=== PATIENT | female | born 1970 | race Caucasian/White ===

== ENCOUNTER 2017-05-23 12:33 | Inpatient (IN) | payer OTHER ==
[~2017-05-23] VITALS: Ht 157.5 cm; Wt 132.4 kg
[~2017-05-23 12:33] MED LIST: HIGH POTENCY I134 MG PO; LAMOTRIGINE200 M2 PO; XANAX0.5 M1 PO; ZOFRAN ODT4 M1 SL
--- NOTE | 2017-05-23 14:12 | ED GI/GU/ABDOMINAL COMPLAINT ---
History of Present Illness General Chief Complaint: Abdominal Pain/Flank Pain Stated Complaint: ABD/FLANK PAIN Source: patient, family Exam Limitations: no limitations Vital Signs & Intake/Output Vital Signs & Intake/Output Vital Signs Date Time Temp Pulse Resp B/P B/P Pulse O2 O2 Flow FiO2 Mean Ox Delivery Rate 05/23 1824 98.0 72 18 140/64 100 Room Air 05/23 1720 98.2 68 18 155/77 100 Room Air 05/23 1615 98.2 72 18 140/64 99 Room Air 05/23 1240 96.0 61 18 157/83 100 Room Air Room Air Allergies Coded Allergies: amoxicillin (SWELLING 02/02/16) Reconcile Medications Alprazolam (Xanax) 0.5 MG TABLET 1 TAB PO DAILY NEEDED ANXIETY (Reported) Ferrous Sulfate (High Potency Iron) (Unknown Strength) TABLET (Unknown Dose) PO DAILY SUPPLEMENT (Reported) Lamotrigine 200 MG TABLET 1 TAB PO DAILY MENTAL HEALTH (Reported) Ondansetron (Zofran Odt) 4 MG TAB.RAPDIS 1 TAB SL TID PRN NAUSEA Triage Note: TRIAGE: 47 Y/O FEMALE PRESENTS C/O LEFT ABDOMINAL PAIN, LEFT FLANK PAIN. PAIN: 7/10. ALSO CURRENTLY BEING TREATED FOR UTI ON WEDNESDAY. "I HAD A RECENT URINALYSIS COMPLETED. I'M ON ANTIBIOTICS. THE RESUTLS READ 'COLONIZATION' AND MY FRIEND IN THE MEDICAL FIELD SAID THAT THAT COULD MEAN THAT THE UTI IS SPREADING TO MY KIDNEY." Triage Nurses Notes Reviewed? yes ? N Is pt currently ? No HPI: 47 yo F PMH HTN, IBS, Nephrolithiasis, Gastric bypass presenting with abdominal pain. Patient was in her usual state of health prior to 5 days ago, developed increased urinary frequency without dysuria, hematuria, change in color or smell of urine, evaluated by PMD, urinalysis showed infection, started on Bactrim, urine culture results returned today without significant growth. Patient developed abdominal pain starting this morning, left flank rating to the left upper quadrant, quality, constant with fluctuating intensity, worse with movement or palpation. Associated nausea without vomiting. ROS (+) for constipation with no bowel movement for the last 5 days, some chills without fevers. Patient is currently having menstrual peroid. Denies associated chest pain, palpitations, shortness of breath, diarrhea, melena, hematochezia, vaginal discharge, headache, neck pain, or focal neurologic symptoms. Past History Travel History Traveled to [place] past 21 day No Medical History Any Pertinent Medical History? see below for history Neurological: NONE EENT: NONE Cardiovascular: hypertension Respiratory: NONE Gastrointestinal: irritable bowel syndrome, HERNIA Hepatic: NONE Renal: KIDNEY STONES Musculoskeletal: NONE Psychiatric: bipolar disease Endocrine: NONE Blood Disorders: anemia Cancer(s): NONE [employer] WORKER/Reproductive: NONE Surgical History Surgical History: HERNIA Psychosocial History What is your primary language Polish Tobacco Use: Quit >30 days ago ETOH Use: denies use Illicit Drug Use: denies illicit drug use Family History Hx Contributory? Yes Review of Systems Review of Systems Constitutional: Reports: see HPI. EENTM: Reports: no symptoms. Respiratory: Reports: no symptoms. Cardiovascular: Reports: no symptoms. GI: Reports: see HPI. Genitourinary: Reports: see HPI. Musculoskeletal: Reports: no symptoms. Skin: Reports: no symptoms. Neurological/Psychological: Reports: no symptoms. Hematologic/Endocrine: Reports: no symptoms. Immunologic/Allergic: Reports: no symptoms. All Other Systems: Reviewed and Negative Physical Exam Physical Exam General Appearance: well developed/nourished, no apparent distress, alert, awake Head: normal appearance Eyes: Bilateral: PERRL, EOMI. Ears, Nose, Throat, Mouth: moist mucous membrane Neck: normal inspection, full range of motion, no midline tenderness Respiratory: normal breath sounds, lungs clear Cardiovascular: regular rate/rhythm Gastrointestinal: normal bowel sounds, soft, tenderness Comments: Abdomen: Markedly left CVA tenderness palpation, mild left upper quadrant tenderness palpation without rebound or guarding, overall abdomen soft, nontender to palpation elsewhere, no tenderness to palpation of pelvis Core Measures ACS in differential dx? Yes Sepsis Present: No Sepsis Focused Exam Completed? No Progress Differential Diagnosis: AAA, AMI, appendicitis, biliary colic, bowel obstruction , colon cancer, cholecystitis, diverticulitis, ectopic , endometritis, esophageal varices, gastritis, hepatitis, hernia, hemorrhoids, ischemic bowel, inflamm bowel dis, intrauterine , kidney stone, Lizbeth-Simran tear, ovarian cyst, ovarian torsion, pancreatitis, PID/cervicitis, peptic ulcer, PUD/ GERD, perforated viscous, SBO, threatened AB, UTI/pyelo Plan of Care: Orders Procedure Date/time Status Patient Data 05/23 2001 Active Admit to inpatient 05/24 1955 Active EKG 05/23 1704 Active LIPASE 05/23 1458 Complete LACTIC ACID 05/23 1412 Complete URINE 05/23 1315 Complete URINALYSIS 05/23 1315 Complete COMPREHENSIVE METABOLIC PANEL 05/23 1314 Complete CBC WITHOUT DIFFERENTIAL 05/23 1314 Complete Laboratory Tests 05/23/17 1458: Lactic Acid 1.0 05/23/17 1458: Anion Gap 14, Estimated GFR 44 L, BUN/Creatinine Ratio 16.2, Glucose 88, Calcium 10.0, Total Bilirubin 0.7, AST 23, ALT 34, Alkaline Phosphatase 147 H, Total Protein 8.7 H, Albumin 4.7, Globulin 4.0, Albumin/Globulin Ratio 1.2, Lipase 93, CBC w Diff NO MAN DIFF REQ, RBC 4.53, MCV 86.9, MCH 29.3, MCHC 33.7, RDW 14.7 H, MPV 6.7 L, Gran % 77.4 H, Lymphocytes % 15.3 L, Monocytes % 6.0, Eosinophils % 0.9, Basophils % 0.4, Absolute Granulocytes 7.7 H, Absolute Lymphocytes 1.5, Absolute Monocytes 0.6, Absolute Eosinophils 0.1, Absolute Basophils 0 05/23/17 1344: Urine Color YEL, Urine Clarity CLDY H, Urine pH 6.0, Ur Specific [place] >= 1.030, Urine Protein TRACE H, Urine Ketones NEG, Urine Nitrite NEG, Urine Bilirubin NEG, Urine Urobilinogen 0.2, Ur Leukocyte Esterase SMALL H, Ur Microscopic SEDIMENT EXAMINED, Urine RBC >75 H, Urine WBC 25-50 H, Ur Epithelial Cells FEW, Urine Bacteria FEW H, Urine Hemoglobin LARGE H, Urine Glucose NEG, Urine Test NEGATIVE Physician MDM: 47 yo F PMH HTN, IBS, Nephrolithiasis, Gastric bypass presenting with abdominal pain. VSS, abdominal exam as above. DDx: UTI, cystitis, pyelonephritis, nephrolithiasis, biliary pathology, consider obstruction (given history of constipation and prior surgery), low concern for ACS, aortic pathology. Bedside ultrasound with left hydronephrosis. Morphine and Zofran given with improvement in pain and nausea. CMP with mild creatinine elevation to 1.3, minimal alkaline phosphatase elevation to 147. 2 L normal saline ordered. CBC with mild thrombocytosis, otherwise unremarkable. UA with 20-50 wbc's/hpf, small leukocyte esterase, nitrite negative, few bacteria, contaminated with few epithelial cells, >75 RBCs (menstruation vs. nephrolithiasis). Ciprofloxacin for UTI. CT abdomen and pelvis with "Moderate left hydronephrosis from a 6 mm left UPJ stone. There is stranding of the perinephric fat and small amount of fluid. Differential would include urine extravasation secondary to obstruction and infection. There is a 6 mm right upper pole renal stone." On examination patient persistently uncomfortable, given morphine and Toradol, ongoing nausea. Discussed with Dr. Scanlon (Urology) , recommended admission, will evaluate for stent placement tomorrow morning after medical optimization. Given that the patient has ongoing urinary symptoms despite antibiotics, on going apparent UTI on urinalysis, mildly elevated creatinine, and ongoing pain/nausea, will admit for IV fluids, pain control, and further evaluation by urology. Initial ED EKG: normal sinus rhythm Departure Departure Disposition: STILL A PATIENT Condition: Stable Clinical Impression Primary Impression: Nephrolithiasis Referrals: Vaibhav RODRIGUEZ,Juan Luis Estevez (PCP/Family) Departure Forms: Customer Survey General Discharge Information Admission Note Spoke With: Ladi Ramos MD Documentation of Exam: Documentation of any treatments & extenuating circumstances including Concerns Regarding Discharge (functional status, medication knowledge or non-compliance, living conditions, etc.) that warrant an admission rather than observation: Patient presents with urinary symptoms, nausea, vomiting, and left upper quadrant abdominal pain, found to have 6 mm left obstructing UPJ stone with associated fat stranding and possible forniceal rupture, the patient has been taking Bactrim for UTI, 2 stab UTI on the UA here, she is failed outpatient treatment with antibiotics, the patient requires admission for IV pain medications, IV nausea control, IV fluids, monitoring, urology consult, and possible stent placement, if discharged the patient has a high likelihood of progressive renal failure, progressive infection and sepsis physciology, possibly leading to ]
[2017-05-23 15:11] LABS: ABSOLUTE BASOPHIL COUNT 0 /CUMM (0.0-0.2); ABSOLUTE EOSINOPHIL COUNT 0.1 /CUMM (0.0-0.7); ABSOLUTE GRANULOCYTE CT 7.7 /CUMM (1.4-6.5); ABSOLUTE LYMPH COUNT 1.5 /CUMM (1.2-3.4); ABSOLUTE MONOCYTE COUNT 0.6 /CUMM (0.10-0.60); BASOPHIL % 0.4 % (0.0-2.0); EOSINOPHIL % 0.9 % (0-5); GRANULOCYTE % 77.4 % (42.2-75.2); HEMATOCRIT 39.4 % (37-47); MEAN CORPUSCULAR HGB 29.3 PG (27.0-31.0); MEAN CORPUSCULAR HGB CONC 33.7 G/DL (33.0-37.0); MEAN CORPUSCULAR VOLUME 86.9 FL (81.0-99.0); MEAN PLATELET VOLUME 6.7 FL (7.4-10.4); PLATELET COUNT 428 /CUMM (130-400); RBC DISTRIBUTION WIDTH 14.7 % (11.5-14.5); RED BLOOD CELL CT 4.53 /CUMM (4.20-5.40); WHITE BLOOD CELL COUNT 9.9 /CUMM (4.8-10.8)
--- NOTE | 2017-05-23 17:06 | CT SCAN REPORT ---
EXAMINATION: CT ABDOMEN AND PELVIS WITH CONTRAST CLINICAL INFORMATION: Constipation. Left-sided flank pain. Urinary symptoms. Evaluate for pyelonephritis or nephrolithiasis. COMPARISON: Previous CT January 2014 TECHNIQUE: Multidetector volumetric imaging was performed of the abdomen and pelvis following IV administration of 90 mL of Optiray 320 intravenous contrast. Sagittal and coronal reformatted images were obtained on the technologist's workstation. DLP: 03/05/2007 mGy-cm FINDINGS: LUNG BASES: The visualized lung bases are unremarkable. LIVER, GALLBLADDER, AND BILIARY TREE: The liver is normal in size, shape, and attenuation. No focal hepatic lesion or biliary ductal dilatation is present. The gallbladder is unremarkable with no evidence of radiopaque gallstones, gallbladder wall thickening, or obvious pericholecystic inflammatory changes. PANCREAS: Unremarkable. SPLEEN: Unremarkable. ADRENAL GLANDS: Unremarkable. KIDNEYS AND URETERS: There is a 6 mm right upper pole renal stone. There is moderate left hydronephrosis from approximately 6 mm left UPJ stone. There is mild stranding of the left perinephric fat or fluid questionable for urine extravasation secondary to obstruction versus infection. BLADDER: Not full and not well evaluated. GASTROINTESTINAL TRACT: There is evidence of mild diverticulosis. Small and large bowel is otherwise normal. The appendix is normal. There are postsurgical changes to the stomach ABDOMINAL WALL: There is evidence of previous upper midline ventral hernia repair with mesh. No recurrent hernia is seen. There is a small umbilical hernia containing fat. There is a knuckle of small bowel that extends toward the neck of the hernia but does not extend into the hernia sac. LYMPH NODES: There are no enlarged lymph nodes. There is no ascites. VASCULAR: Unremarkable. PELVIC VISCERA: The uterus and adnexa are unremarkable. OSSEOUS STRUCTURES: There are degenerative changes of the spine and at the hip joints. IMPRESSION: Moderate left hydronephrosis from a 6 mm left UPJ stone. There is stranding of the perinephric fat and small amount of fluid. Differential would include urine extravasation secondary to obstruction and infection. There is a 6 mm right upper pole renal stone. Mild diverticulosis. No evidence of diverticulitis.
--- NOTE | 2017-05-23 20:22 | History & Physical ---
Venu Schumacher 05/23/172009: General Information and HPI MD Statement: I have seen and personally examined KOTA MEJÍA and documented this H&P. The patient is a 47 year old F who presented with a patient stated chief complaint of left pleural flank and suprapubic pain with nausea. []. Source of Information: patient Exam Limitations: no limitations History of Present Illness: 47 YO F ex-smoker (quit 15 years back) with PMH of HTN, IBS, lactose intolerance , nephrolithiasis, incisional hernia s/p repair 2013, bipolar disease, chronic headache, ovarian cyst removal in 2016 and gastric bypass 2001 presented to ED with chief complaint of left flank, suprapubic pain with nausea since this morning and urinary frequency for last 1 week. Patient reported that she was in her usual state of health one week back when she noticed having urinary frequency without burning sensation. Patient went to see her primary care physician and he ordered a urine test that came back positive for UTI. Patient was treated with Bactrim but according to the patient her urinary frequency remained the same. This morning at 4 AM patient reported having left flank and suprapubic pain that started suddenly, sharp, intermittent pain, 7/10 without aggravating or relieving factor. Patient took some pain medication and went to sleep. According to patient when she woke up she still had pain and she called her friend who told her to go to ED because it could be the infection that spread to kidney. Patient denied any chest pain, short of breath, palpitation, vomiting, lightheadedness, loss of consciousness, trauma, blood in urine, melena , hematemesis, burning sensation while urinating, chills and fever. Patient also reported having alternating diarrhea and constipation due to her irritated bowel syndrome and she is scheduled to see her mechanical facilities technician in few days. Patient had EGD in 2013 that showed mildly dilated gastric pouch. ED course: Vitals: Temperature 96.0, pulse 61, respiratory rate 18, blood pressure 157/83, oxygen saturation 100% on room air Labs: WBC count 9.9, hemoglobin 13.3, hematocrit 39.4, platelet count 428, sodium 142, potassium 4.3, BUN 21, creatinine 1.3, anion gap 14, BUN/creatinine ratio 16.2, glucose 88, calcium 10.0, bilirubin 0.3, AST 23, ALT 34, alkaline phosphatase 147, Patient was given 1 dose of ciprofloxacin in ED Allergies/Medications Allergies: Coded Allergies: amoxicillin (SWELLING 02/02/16) Past History Travel History Traveled to [place] past 21 day No Medical History Neurological: NONE EENT: NONE Cardiovascular: hypertension Respiratory: NONE Gastrointestinal: irritable bowel syndrome, HERNIA Hepatic: NONE Renal: KIDNEY STONES Musculoskeletal: NONE Psychiatric: bipolar disease Endocrine: NONE Blood Disorders: anemia Cancer(s): NONE BRASS MOLDER/Reproductive: NONE Surgical History Surgical History: HERNIA Past Family/Social History Psychosocial History ETOH Use: denies use Illicit Drug Use: denies illicit drug use Review of Systems Review of Systems Constitutional: Reports: no symptoms. EENTM: Reports: no symptoms. Cardiovascular: Reports: no symptoms. Respiratory: Reports: no symptoms. GI: Reports: abdominal pain. Genitourinary: Reports: frequency. Musculoskeletal: Reports: see HPI. Skin: Reports: no symptoms. Neurological/Psychological: Reports: no symptoms. Hematologic/Endocrine: Reports: no symptoms. Exam & Diagnostic Data Last 24 Hrs of Vital Signs/I&O Vital Signs Date Time Temp Pulse Resp B/P B/P Pulse O2 O2 Flow FiO2 Mean Ox Delivery Rate 05/23 1824 98.0 72 18 140/64 100 Room Air 05/23 1720 98.2 68 18 155/77 100 Room Air 05/23 1615 98.2 72 18 140/64 99 Room Air 05/23 1240 96.0 61 18 157/83 100 Room Air Room Air Intake & Output 05/23 1600 05/23 0800 05/23 0000 Intake Total Output Total Balance Patient 290 lb Weight Weight Reported by Patient Measurement Method Physical Exam General Appearance Alert, Oriented X3, Cooperative, No Acute Distress Skin No Rashes Skin Temp/Moisture Exam: Warm/Dry Sepsis Skin Exam (color): Normal for Ethnicity HEENT Atraumatic, PERRLA, EOMI Neck Supple Cardiovascular Normal S1, Normal S2 Lungs Clear to Auscultation, Normal Air Movement Abdomen suprapubic tenderness, CVA tenderness positive on left Neurological Normal Speech, Strength at 5/5 X4 Ext, Normal Tone, Sensation Intact Extremities No Edema Last 24 Hrs of Labs/Toni: Laboratory Tests 05/23/17 1458: Lactic Acid 1.0 05/23/17 1458: Anion Gap 14, Estimated GFR 44 L, BUN/Creatinine Ratio 16.2, Glucose 88, Calcium 10.0, Total Bilirubin 0.7, AST 23, ALT 34, Alkaline Phosphatase 147 H, Total Protein 8.7 H, Albumin 4.7, Globulin 4.0, Albumin/Globulin Ratio 1.2, Lipase 93, CBC w Diff NO MAN DIFF REQ, RBC 4.53, MCV 86.9, MCH 29.3, MCHC 33.7, RDW 14.7 H, MPV 6.7 L, Gran % 77.4 H, Lymphocytes % 15.3 L, Monocytes % 6.0, Eosinophils % 0.9, Basophils % 0.4, Absolute Granulocytes 7.7 H, Absolute Lymphocytes 1.5, Absolute Monocytes 0.6, Absolute Eosinophils 0.1, Absolute Basophils 0 05/23/17 1344: Urine Color YEL, Urine Clarity CLDY H, Urine pH 6.0, Ur Specific [place] >= 1.030, Urine Protein TRACE H, Urine Ketones NEG, Urine Nitrite NEG, Urine Bilirubin NEG, Urine Urobilinogen 0.2, Ur Leukocyte Esterase SMALL H, Ur Microscopic SEDIMENT EXAMINED, Urine RBC >75 H, Urine WBC 25-50 H, Ur Epithelial Cells FEW, Urine Bacteria FEW H, Urine Hemoglobin LARGE H, Urine Glucose NEG, Urine Test NEGATIVE Assessment/Plan Assessment: 47 YO F ex-smoker (quit 15 years back) with PMH of HTN, IBS, lactose intolerance , nephrolithiasis, incisional hernia s/p repair 2013, bipolar disease, chronic headache, ovarian cyst removal in 2016 and gastric bypass 2001 presented to ED with chief complaint of left flank, suprapubic pain with nausea since this morning and urinary frequency for last 1 week. We will admit the patient on general medicine floor to treat for left ureteric stone with hydronephrosis. Left ureteric stone with hydronephrosis: -We will keep the patient nothing by mouth for possible procedure tomorrow -IV fluid hydration -IV antiemetic, Zofran when necessary -Urology consult -IV morphine Left pyelonephritis: -IV ceftriaxone -IV hydration -We will follow the urine culture Acute kidney injury: -Possibly due to dehydration and use of NSAIDs with ARBs -We will monitor input and output -Avoid nephrotoxic medications -Continue IV hydration -Hold the ARB and no NSAIDs -We will follow creatinine BUN level History of hypertension: -Continue home medication History of bipolar disorder: -Continue home medication History of chronic headache: -Continue topiramate History of anxiety: -In home medication DVT prophylaxis: Mechanical and subcutaneous Lovenox CODE STATUS: Full code As Ranked By This Provider Problem List: 1. Nephrolithiasis 2. OTIS (acute kidney injury) 3. Hydronephrosis 4. Pyelonephritis Core Measures/Misc (11/15) Acute Coronary Syndrome ACS Diagnosis: No Congestive Heart Failure Congestive Heart Failure Diagnosis No Cerebrovascular Accident CVA/TIA Diagnosis: No VTE (View Protocol) VTE Risk Factors Age>40 No Mechanical VTE Prophylaxis d/t N/A MechProphylax Ordered No VTE Pharm Prophylaxis d/t NA PharmProphylax ordered Sepsis (View protocol) Sepsis Present: No ForestRubiCady 05/23/17 2308: General Information and HPI Allergies/Medications Home Med list Alprazolam 0.25 MG TABLET ANXIETY (Reported) Ferrous Sulfate (High Potency Iron) (Unknown Strength) TABLET (Unknown Dose) PO DAILY SUPPLEMENT (Reported) Irbesartan 150 MG TABLET 1 TAB PO DAILY HIGH BLOOD PRESSURE (Reported) Lamotrigine 200 MG TABLET 1 TAB PO DAILY MENTAL HEALTH (Reported) Ondansetron (Zofran Odt) 4 MG TAB.RAPDIS 1 TAB SL TID PRN NAUSEA Rosuvastatin Calcium (Crestor) 10 MG TABLET 1 TAB PO DAILY HIGH CHOLESTROL ( Reported) Topiramate 25 MG TABLET 1 TAB PO BID HEADACHE (Reported) Resident Review Statement Resident Statement: examined this patient, discussed with operations intern, agreed with operations intern Other Findings: Patient is 47-year-old obese female with past medical history significant for anxiety, bipolar disorder, history of gastric bypass surgery in 2003, history of renal colic at age 19 and hypertension came in with chief complaint of left-sided lower abdominal and flank pain since 4 AM. Patient was recently diagnosed with UTI last week and she completed a course of Bactrim today. Since 4 AM this morning she start experiencing severe intermittent left flank pain radiating to back with nausea minimally relieved with over-the- counter Tylenol and Advil. She denied any fever, chills, headache, vomiting, chest pain, shortness of breath. She has increase in frequency of urination but denied any burning and she is not sure of hematuria as she has menstural bleeding this week. She denied frequent UTIs had last UTI almost 10 years ago. Vital signs on admission were temperature 96.0, pulse 61, respiratory rate 18, blood pressure 157/83 and saturating 100% on room air. WBC 9.9, hemoglobin 13.3, platelet count 428, sodium 142, potassium 4.3, BUNs 21 and creatinine 1.3., UA showed 25-50 WBCs and more than 75 RBCs with few urine bacteria Abdominal and pelvis CAT scan showed moderate left hydronephrosis from 6 mm left ureteropelvic junction stone. There is perinephric fat stranding and small amount of fluid. On examination Alert and oriented 3, comfortable Head atraumatic Neck supple Chest clear to auscultate Heart S1, S2 normal no added sounds Abdomen obese, slight left lower abdomen/flank tenderness and left CVA tenderness positive Extremities showed trace edema No neurological deficit noted Assessment and plan 47-year-old obese female with history of hypertension, dyslipidemia, bipolar disorder and anxiety, recently treated for UTI came with left flank pain and imaging study is suggestive of obstructing left renal colic with hydronephrosis. We will admit patient on general medical floor and we will address following problems Problem list 1. Left flank pain and hydronephrosis due to obstructing ureteric stone 2. History of bipolar disease and anxiety 3. History of hypertension and dyslipidemia 4. History of gastric bypass surgery 5. History of chronic headaches 6. AK I most likely prerenal due to dehydration/infection or NSAIDs use Plan 1. We will admit her on general medical floor 2. We will monitor her WBC count, basic electrolyte panel and urine culture 3. We will start her on antibiotic ceftriaxone daily to cover her for pyelonephritis 4. Gentle IV hydration 5. We will avoid nephrotoxic's 6. Symptomatic treatment for nausea and adequate pain medications 7. Urology evaluation 8. We'll keep her nothing by mouth for possible stent placement tomorrow 9. We will continue all her home medications except nicolas inhibitors due to AK I and we will monitor her blood pressure if needed we might give her amlodipine Patient is full code Nothing by mouth Pharmacological DVT prophylaxis Ladi Ramos 05/24/17 0052: Attending MD Review Statement Attending Statement Attending MD Statement: examined this patient, discuss w/resident/PA/PRIVATE BANKER, agreed w/resident/PA/PRIVATE BANKER, reviewed EMR data (avail), reviewed images, amended to note Attending Assessment/Plan: CC: Left flank pain PMH: HLD, HTN, IBS, history of gastric bypass, obesity, bipolar disorder, headache, history of nephrolithiasis at the age of 19 years, history of hernia repair, history of ovarian cyst removal Patient came to ER for left-sided flank pain. Patient started to notice urinary frequency and urgency approximately 5 days back for which she was seen by primary care physician and urinalysis was updated and she was prescribed Bactrim. She started taking Bactrim from and today was her last day of the treatment but this morning she noticed left flank pain radiating to anterior side up to suprapubic area, sharp, not relieved even with 4 tabs of Aleve. She tried to rest but pain was worsening so she came to ER. Of note her urine cultures were negative, as informed by her primary care physician. Patient denies any fever, chills, vomiting but she felt mild nausea this morning. She feels constipated since Wednesday, tried linzess without relief. Her urinary frequency and urgency continues along with the left flank pain. She had similar episode of renal stone at the age of 19, but did not have any further episode, does not get recurrent UTI. Vitals: Afebrile, pulse 60s, RR 18, blood pressure 157/83, saturating well on room air. On exam: A O 3, cooperative, no acute distress, obese, neck supple, JVD normal, no lymphadenopathy, mucosa dry, no focal neurological deficit, no dependent edema, no obvious skin rashes or inflammation CVS: S1-S2, RRR. RS: Clear to auscultate bilaterally. Abdomen: Soft, NT, ND, bowel sounds present, mild left CVA tenderness. CT abdomen and pelvis with IV contrast: Moderate left hydronephrosis from a 6 mm left UPJ stone. There is stranding of the perinephric fat and small amount of fluid. Differential would include urine extravasation secondary to obstruction and infection. There is a 6 mm right upper pole renal stone. Mild diverticulosis. No evidence of diverticulitis. A and P 47 year old female with above-mentioned past medical history presented in ER for typical symptoms of left-sided flank pain radiating to the abdomen and the suprapubic area started this morning. Symptoms were preceded by urinary frequency and urgency since last 5 days and was started on by mouth Bactrim on . Urinary frequency and urgency continue and flank pain developed today which was progressively worsening. Patient denies any fever or chills dizziness, palpitation chest pain mild nausea but no vomiting. Vitals are stable without any significant fever, examination unremarkable except mild left CVA tenderness. She was found to have left hydronephrosis with a 6 mm left UPJ stone and suspicion of pyelonephritis. She doesn't have significant leukocytosis, neutrophils 77% but there is mild increase in creatinine to 1.3 as compared to 0.7 in March 2017, could be secondary to mild dehydration, and NSAIDs use or infection. Urine is positive for small leukocyte esterase, more than 75 RBC, large hemoglobin. Her UTI could be partially treated with Bactrim. She is allergy to amoxicillin (rash and facial swelling), we will try ceftriaxone, she received a dose of Cipro in ER. Urologist was called from ER, who suggested possible stent in a.m. + Left hydronephrosis with possible pyelonephritis with obstructive UPJ stone + Constipation + History of HLD, HTN, IBS, history of gastric bypass, obesity, bipolar disorder , headache - Admit to general medicine - Continue gentle hydration with normal saline at 75 mL per hour - Hold ARB and no NSAIDS - Follow-up urine culture - Nothing by mouth after midnight - Start ceftriaxone at 8 AM - Adequate pain control - Urology consult - MiraLAX and senna for constipation - When necessary Zofran for nausea - Continue all her home medications - Repeat labs in a.m.
--- NOTE | 2017-05-23 20:34 | Cons- Urology ---
General Information and HPI Consulting Request Date of Consult: 05/23/17 Requested By: MD Mac Jacob Reason for Consult: hydro. ureter stone Source of Information: patient, old records Exam Limitations: no limitations History of Present Illness: 47 yr old with 5 days of colic. seen a few dasys ago and now returns with nausea, worse pain. CT REVEALS LEFT 6MM OBST STONE IN URETER: 8MM RIGHT STONE. BOTH DISCUSSED WITH PT. Allergies/Medications Allergies: Coded Allergies: amoxicillin (SWELLING 02/02/16) Home Med List: Alprazolam 0.25 MG TABLET ANXIETY (Reported) Ferrous Sulfate (High Potency Iron) (Unknown Strength) TABLET (Unknown Dose) PO DAILY SUPPLEMENT (Reported) Irbesartan 150 MG TABLET 1 TAB PO DAILY HIGH BLOOD PRESSURE (Reported) Lamotrigine 200 MG TABLET 1 TAB PO DAILY MENTAL HEALTH (Reported) Ondansetron (Zofran Odt) 4 MG TAB.RAPDIS 1 TAB SL TID PRN NAUSEA Rosuvastatin Calcium (Crestor) 10 MG TABLET 1 TAB PO DAILY HIGH CHOLESTROL ( Reported) Topiramate 25 MG TABLET 1 TAB PO BID HEADACHE (Reported) Current Medications: Current Medications Sig/Rebecca Start time Last Medication Dose Route Stop Time Status Admin Ciprofloxacin 400 MG ONCE ONE 05/23 2000 DC IV 05/23 2000 Morphine Sulfate 0 .STK-MED ONE 05/23 1753 DC .ROUTE Morphine Sulfate 4 MG ONCE ONE 05/23 1745 DC 05/23 IV 05/23 1746 1753 Morphine Sulfate 0 .STK-MED ONE 05/23 1537 DC .ROUTE Morphine Sulfate 4 MG ONCE ONE 05/23 1515 DC 05/23 IV 05/23 1516 1543 Ondansetron HCl 0 .STK-MED ONE 05/23 1537 DC .ROUTE Ondansetron HCl 4 MG ONCE ONE 05/23 1515 DC 05/23 IV 05/23 1516 1543 Sodium Chloride 1,000 ML BOLUS ONE 05/23 1615 DC 05/23 IV 05/23 1814 1647 Sodium Chloride 1,000 ML BOLUS ONE 05/23 1615 DC 05/23 IV 05/23 1814 1918 Past History Medical History Neurological: NONE EENT: NONE Cardiovascular: hypertension Respiratory: NONE Gastrointestinal: irritable bowel syndrome, HERNIA Hepatic: NONE Renal: KIDNEY STONES Musculoskeletal: NONE Psychiatric: bipolar disease Endocrine: NONE Blood Disorders: anemia Cancer(s): NONE CLINICAL EDUCATION COORDINATOR/Reproductive: NONE Surgical History Pertinent Surgical History: HERNIA Psychosocial History ETOH Use: denies use Illicit Drug Use: denies illicit drug use Functional Ability ADLs Independent: dressing, eating, toileting, bathing. Ambulation: independent IADLs Independent: shopping, housework, finances, food prep, telephone, transportation , medication admin. 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 EENTM: Denies: no symptoms. Cardiovascular: Denies: no symptoms. Respiratory: Denies: no symptoms. GI: Denies: abdominal pain, distention. Genitourinary: Reports: dysuria. Musculoskeletal: Denies: no symptoms. Exam & Diagnostic Data Vital Signs and I&O Vital Signs Date Time Temp Pulse Resp B/P B/P Pulse O2 O2 Flow FiO2 Mean Ox Delivery Rate 05/23 1824 98.0 72 18 140/64 100 Room Air 05/23 1720 98.2 68 18 155/77 100 Room Air 05/23 1615 98.2 72 18 140/64 99 Room Air 05/23 1240 96.0 61 18 157/83 100 Room Air Room Air Intake & Output 05/23 1600 05/23 0800 05/23 0000 05/22 1600 05/22 0800 05/22 0000 Intake Total Output Total Balance Patient 290 lb Weight Weight Reported by Patient Measurement Method Physical Exam General Appearance: well developed/nourished, mild distress Head: atraumatic Eyes: Bilateral: normal appearance. Neck: normal inspection Respiratory: normal breath sounds Cardiovascular: regular rate/rhythm Gastrointestinal: normal bowel sounds, soft, non-tender Back: CVA tenderness (L) Extremities: normal inspection Other Physical Findings: obese Last 24 Hours of Labs: Laboratory Tests 05/23 05/23 1458 1458 Chemistry Sodium (137 - 145 mmol/L) 142 Potassium (3.5 - 5.1 mmol/L) 4.3 Chloride (98 - 107 mmol/L) 107 Carbon Dioxide (22 - 30 mmol/L) 22 Anion Gap (5 - 16) 14 BUN (7 - 17 mg/dL) 21 H Creatinine (0.5 - 1.0 mg/dL) 1.3 H Estimated GFR (>60 ml/min) 44 L BUN/Creatinine Ratio (7 - 25 %) 16.2 Glucose (65 - 99 mg/dL) 88 Lactic Acid (0.7 - 2.1 mmol/L) 1.0 Calcium (8.4 - 10.2 mg/dL) 10.0 Total Bilirubin (0.2 - 1.3 mg/dL) 0.7 AST (14 - 36 U/L) 23 ALT (9 - 52 U/L) 34 Alkaline Phosphatase (<127 U/L) 147 H Total Protein (6.3 - 8.2 g/dL) 8.7 H Albumin (3.5 - 5.0 g/dL) 4.7 Globulin (1.9 - 4.2 gm/dL) 4.0 Albumin/Globulin Ratio (1.1 - 2.2 %) 1.2 Lipase (23 - 300 U/L) 93 Hematology CBC w Diff NO MAN DIFF REQ WBC (4.8 - 10.8 /CUMM) 9.9 RBC (4.20 - 5.40 /CUMM) 4.53 Hgb (12.0 - 16.0 G/DL) 13.3 Hct (37 - 47 %) 39.4 MCV (81.0 - 99.0 FL) 86.9 MCH (27.0 - 31.0 PG) 29.3 MCHC (33.0 - 37.0 G/DL) 33.7 RDW (11.5 - 14.5 %) 14.7 H Plt Count (130 - 400 /CUMM) 428 H MPV (7.4 - 10.4 FL) 6.7 L Gran % (42.2 - 75.2 %) 77.4 H Lymphocytes % (20.5 - 51.1 %) 15.3 L Monocytes % (1.7 - 9.3 %) 6.0 Eosinophils % (0 - 5 %) 0.9 Basophils % (0.0 - 2.0 %) 0.4 Absolute Granulocytes (1.4 - 6.5 /CUMM) 7.7 H Absolute Lymphocytes (1.2 - 3.4 /CUMM) 1.5 Absolute Monocytes (0.10 - 0.60 /CUMM) 0.6 Absolute Eosinophils (0.0 - 0.7 /CUMM) 0.1 Absolute Basophils (0.0 - 0.2 /CUMM) 0 05/23 1344 Urines Urine Color (YEL,AMB,STR) YEL Urine Clarity (CLEAR) CLDY H Urine pH (5.0 - 8.0) 6.0 Ur Specific [place] (1.001 - 1.035) >= 1.030 Urine Protein (NEG,<30 MG/DL) TRACE H Urine Ketones (NEG) NEG Urine Nitrite (NEG) NEG Urine Bilirubin (NEG) NEG Urine Urobilinogen (0.1 - 1.0 EU/dl) 0.2 Ur Leukocyte Esterase (NEG) SMALL H Ur Microscopic SEDIMENT EXAMINED Urine RBC (0 - 5 /HPF) >75 H Urine WBC (0 - 2 /HPF) 25-50 H Ur Epithelial Cells (NONE,FEW) FEW Urine Bacteria (NEG/NONE) FEW H Urine Hemoglobin (NEG) LARGE H Urine Glucose (N MG/DL) NEG Urine Test NEGATIVE Imaging Results: PATIENT: KOTA MEJÍA PRESENT AGE: 47 PATIENT ACCOUNT NO: [id number] : 69 LOCATION: [facility] ORDERING PHYSICIAN: Toby Norman MD SERVICE DATE: 05/23/17 EXAM TYPE: CAT - CT ABD & PELVIS W IV CONTRAST EXAMINATION: CT ABDOMEN AND PELVIS WITH CONTRAST CLINICAL INFORMATION: Constipation. Left-sided flank pain. Urinary symptoms. Evaluate for pyelonephritis or nephrolithiasis. COMPARISON: Previous CT January 2014 TECHNIQUE: Multidetector volumetric imaging was performed of the abdomen and pelvis following IV administration of 90 mL of Optiray 320 intravenous contrast. Sagittal and coronal reformatted images were obtained on the technologist's workstation. DLP: 03/05/2007 mGy-cm FINDINGS: LUNG BASES: The visualized lung bases are unremarkable. LIVER, GALLBLADDER, AND BILIARY TREE: The liver is normal in size, shape, and attenuation. No focal hepatic lesion or biliary ductal dilatation is present. The gallbladder is unremarkable with no evidence of radiopaque gallstones, gallbladder wall thickening, or obvious pericholecystic inflammatory changes. PANCREAS: Unremarkable. SPLEEN: Unremarkable. ADRENAL GLANDS: Unremarkable. KIDNEYS AND URETERS: There is a 6 mm right upper pole renal stone. There is moderate left hydronephrosis from approximately 6 mm left UPJ stone. There is mild stranding of the left perinephric fat or fluid questionable for urine extravasation secondary to obstruction versus infection. BLADDER: Not full and not well evaluated. GASTROINTESTINAL TRACT: There is evidence of mild diverticulosis. Small and large bowel is otherwise normal. The appendix is normal. There are postsurgical changes to the stomach ABDOMINAL WALL: There is evidence of previous upper midline ventral hernia repair with mesh. No recurrent hernia is seen. There is a small umbilical hernia containing fat. There is a knuckle of small bowel that extends toward the neck of the hernia but does not extend into the hernia sac. LYMPH NODES: There are no enlarged lymph nodes. There is no ascites. VASCULAR: Unremarkable. PELVIC VISCERA: The uterus and adnexa are unremarkable. OSSEOUS STRUCTURES: There are degenerative changes of the spine and at the hip joints. IMPRESSION: Moderate left hydronephrosis from a 6 mm left UPJ stone. There is stranding of the perinephric fat and small amount of fluid. Differential would include urine extravasation secondary to obstruction and infection. There is a 6 mm right upper pole renal stone. Mild diverticulosis. No evidence of diverticulitis. Assessment/Plan Assessment/Plan left hydro due to ureter stone/hydrate, pain management, abx. npo at ut for possiblew stent in am Copies To: Lucas Scanlon MD Consult Acknowledgment - Thank you for your consult request.
[2017-05-23] MEDS ORDERED: CRESTOR10 M1 PO (22:20)
[2017-05-23] MEDS ORDERED: TOPIRAMATE25 M2 PO (22:20)
[2017-05-23] MEDS ORDERED: IRBESARTAN150 M1 PO (22:20)
[2017-05-23] MEDS ORDERED: ALPRAZOLAM0.25 M1 (22:21)
[2017-05-23 22:47] VITALS: BP 144/70
--- NOTE | 2017-05-24 00:54 | Admission Certification ---
Admission Certification Certification Statement - As attending physician, I certify that at the time of - admission, based on clinical presentation, severity of - symptoms, need for further diagnostic testing and - therapeutic interventions, and risk of adverse outcomes - without in-hospital treatment, in my clinical assessment, - this patient requires an acute hospital stay for a minimum - of two nights or longer. I have also considered psychsocial - factors such as support system, advanced age, financial - issues, cognitive issues, and failed out-patient treatments, - past re-admission history, safety of patient, and lack of - compliance as applicable. Specific rationale supporting this admission is: Left hydronephrosis with possible pyelonephritis with obstructive UPJ stone
[2017-05-24 06:22] VITALS: BP 128/76
--- NOTE | 2017-05-24 07:35 | PN- Housestaff ---
See Addendum Subjective Follow-up For: Left hydronephrosis due to ureteric stone Going for OR today Subjective: seen and examined She reports feeling better, no further pain. She did have an episode of dry heaving in the morning, resolved. Review of Systems Constitutional: Reports: see HPI. Objective Last 24 Hrs of Vital Signs/I&O Vital Signs Date Time Temp Pulse Resp B/P B/P Pulse O2 O2 Flow FiO2 Mean Ox Delivery Rate 05/24 0622 98.4 72 20 128/76 96 05/23 2247 98.0 77 18 144/70 99 Room Air 05/23 2154 98.0 80 18 156/70 100 Room Air 05/23 1824 98.0 72 18 140/64 100 Room Air 05/23 1720 98.2 68 18 155/77 100 Room Air 05/23 1615 98.2 72 18 140/64 99 Room Air 05/23 1240 96.0 61 18 157/83 100 Room Air Room Air Intake & Output 05/24 0800 05/24 0000 05/23 1600 Intake Total 600 Output Total Balance 600 Intake, IV 600 Intake, Oral 0 Patient 132.449 kg 131.542 kg Weight Weight Reported by Patient Reported by Patient Measurement Method Physical Exam General Appearance: Alert, Oriented X3, Cooperative Skin: No Rashes, No Breakdown Skin Temp/Moisture Exam: Warm/Dry HEENT: Atraumatic, PERRLA, EOMI Neck: Supple Cardiovascular: Normal S1, Normal S2, No Murmurs Lungs: Clear to Auscultation, Normal Air Movement Abdomen: Normal Bowel Sounds, Soft, tenderness in the middle of the abdomen, radiatng to the back Neurological: Normal Speech, Strength at 5/5 X4 Ext, Normal Tone Extremities: No Clubbing, No Cyanosis, No Edema Vascular: Normal Pulses, Pulses Symmetrical Current Medications: Current Medications Sig/Rebecca Start time Last Medication Dose Route Stop Time Status Admin Acetaminophen 650 MG Q6P PRN 05/23 2199 AC PO Acetaminophen 1,000 MG Q8 PRN 05/23 220 AC 05/24 IV 0628 Alprazolam 0.25 MG DAILY NEEDED 05/23 2230 AC PO 05/30 2229 Atorvastatin Calcium 40 MG 1700 05/24 1700 AC PO Ceftriaxone Sodium 1,000 MG DAILY 05/24 1000 AC 05/24 IV 1006 Ciprofloxacin 400 MG Q12 05/24 1000 CAN Dextrose/Water 200 ML IV Ciprofloxacin 400 MG ONCE ONE 05/24 1999 DC 05/23 IV 05/23 Ferrous Sulfate 325 MG DAILY 05/24 1000 AC PO Heparin Sodium 5,000 UNIT Q8 05/23 2200 AC 05/23 (Porcine) SC 2258 Ketorolac 30 MG TID PRN 05/24 0715 AC Tromethamine IV Lamotrigine 200 MG DAILY 05/24 1000 AC PO Morphine Sulfate 2 MG Q4P PRN 05/23 2199 AC 05/24 IV 1005 Morphine Sulfate 0 .STK-MED ONE 05/23 1753 DC .ROUTE Morphine Sulfate 4 MG ONCE ONE 05/23 1745 DC 05/23 IV 05/23 1746 1753 Morphine Sulfate 0 .STK-MED ONE 05/23 1537 DC .ROUTE Morphine Sulfate 4 MG ONCE ONE 05/23 1515 DC 05/23 IV 05/23 1516 1543 Omeprazole 40 MG DAILY AC 05/24 0707 AC 05/24 PO 0817 Ondansetron HCl 4 MG TID PRN 05/23 2200 AC PO Ondansetron HCl 0 .STK-MED ONE 05/23 1537 DC .ROUTE Ondansetron HCl 4 MG ONCE ONE 05/23 1515 DC 05/23 IV 05/23 1516 1543 Sodium Chloride 1,000 ML Q13H 05/23 2200 AC 05/24 IV 1118 Sodium Chloride 1,000 ML BOLUS ONE 05/23 1615 DC 05/23 IV 05/23 1814 1647 Sodium Chloride 1,000 ML BOLUS ONE 05/23 1615 DC 05/23 IV 05/23 1814 1918 Topiramate 200 MG DAILY 05/24 1000 DC PO Last 24 Hrs of Lab/Toni Results Last 24 Hrs of Labs/Mics: Laboratory Tests 05/24/17 0725: Anion Gap 11, Estimated GFR 44 L, BUN/Creatinine Ratio 13.1, CBC w Diff NO MAN DIFF REQ, RBC 3.65 L, MCV 86.0, MCH 29.4, MCHC 34.2, RDW 15.1 H, MPV 6.9 L, Gran % 76.2 H, Lymphocytes % 14.3 L, Monocytes % 8.2, Eosinophils % 1.0, Basophils % 0.3, Absolute Granulocytes 5.7, Absolute Lymphocytes 1.1 L, Absolute Monocytes 0.6, Absolute Eosinophils 0.1, Absolute Basophils 0 05/23/17 1458: Lactic Acid 1.0 05/23/17 1458: Anion Gap 14, Estimated GFR 44 L, BUN/Creatinine Ratio 16.2, Glucose 88, Calcium 10.0, Total Bilirubin 0.7, AST 23, ALT 34, Alkaline Phosphatase 147 H, Total Protein 8.7 H, Albumin 4.7, Globulin 4.0, Albumin/Globulin Ratio 1.2, Lipase 93, CBC w Diff NO MAN DIFF REQ, RBC 4.53, MCV 86.9, MCH 29.3, MCHC 33.7, RDW 14.7 H, MPV 6.7 L, Gran % 77.4 H, Lymphocytes % 15.3 L, Monocytes % 6.0, Eosinophils % 0.9, Basophils % 0.4, Absolute Granulocytes 7.7 H, Absolute Lymphocytes 1.5, Absolute Monocytes 0.6, Absolute Eosinophils 0.1, Absolute Basophils 0 05/23/17 1344: Urine Color YEL, Urine Clarity CLDY H, Urine pH 6.0, Ur Specific [place] >= 1.030, Urine Protein TRACE H, Urine Ketones NEG, Urine Nitrite NEG, Urine Bilirubin NEG, Urine Urobilinogen 0.2, Ur Leukocyte Esterase SMALL H, Ur Microscopic SEDIMENT EXAMINED, Urine RBC >75 H, Urine WBC 25-50 H, Ur Epithelial Cells FEW, Urine Bacteria FEW H, Urine Hemoglobin LARGE H, Urine Glucose NEG, Urine Test NEGATIVE Microbiology 05/24 1343 URINE ROUT: Urine Culture - RES Assessment/Plan Assessment: Patient is a 47 YO F with PMH of HLD, HTN, IBS, gastric bypass, obesity, bipolar disorder, headache, nephrolithiasis (age 19ys), hernia repair, ovarian cyst removal presented in ER for typical symptoms of left-sided flank pain radiating to the abdomen and the suprapubic area started on the day of admission. 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 Urinary frequency and urgency continue and flank pain developed on day of admission which was progressively worsening. Patient denies any fever or chills dizziness, palpitation chest pain mild nausea but no vomiting. Vitals are stable without any significant fever, examination unremarkable except mild left CVA tenderness. Labs did show leukocytosis, neutrophils 77% but there is mild increase in creatinine to 1.3 as compared to 0.7 in March 2017. Urine is positive for small leukocyte esterase, more than 75 RBC, large hemoglobin. Imagning with CT abdomen demonstrated left hydronephrosis with a 6 mm left UPJ stone and suspicion of pyelonephritis. Admitted to general medicine floor Problem list 1. Left hydronephrosis with possible pyelonephritis with obstructive UPJ stone 2. Constipation 3. HTN 4. IBS 5. Bipolar disorder Left hydronephrosis with possible pyelonephritis with obstructive UPJ stone Urology consulted as she had a 6mm stone on left side, 8mm stone on the right side. Received 3L of fluids so far. A dose of ciprofloxacin was given, started on ceftriaxone IV subsequently. Going to OR for procedure later this afternoon by . Pain management with IV Tylenol, IV ketorolac , IV morphine. OTIS Cr of 1.3 at admission. After 3L of hydration still 1.3. Possibly postobstruction bilateral renal stones is the reason. Cotinue to monitor. Constipation --?IBS-C MiraLAX and senna for constipation. If not helpful will consider Linzess tomorrow. HTN She was on Irbesartan 150mg daily at home. It is transitioned to Losartan 50mg daily. Bipolar disorder cotinue Lamotrigine 200mg daily. Headache Cotinue Topiramate 25mg - 2 tabs tonight. DVT prophylaxis SC heparin Code status Full code Problem List: 1. Nephrolithiasis 2. OTIS (acute kidney injury) 3. Hydronephrosis Pain Ratin Pain Location: left sided flank Pain Goal: Pain 4 or less Pain Plan: tylenol ketorolac morphine Tomorrow's Labs & Rationales: cbc to monitor white count bep to monitor Cr.
[2017-05-24 09:11] LABS: ABSOLUTE BASOPHIL COUNT 0 /CUMM (0.0-0.2); ABSOLUTE EOSINOPHIL COUNT 0.1 /CUMM (0.0-0.7); ABSOLUTE GRANULOCYTE CT 5.7 /CUMM (1.4-6.5); ABSOLUTE LYMPH COUNT 1.1 /CUMM (1.2-3.4); ABSOLUTE MONOCYTE COUNT 0.6 /CUMM (0.10-0.60); BASOPHIL % 0.3 % (0.0-2.0); GRANULOCYTE % 76.2 % (42.2-75.2); MEAN CORPUSCULAR HGB 29.4 PG (27.0-31.0); MEAN CORPUSCULAR HGB CONC 34.2 G/DL (33.0-37.0); MEAN PLATELET VOLUME 6.9 FL (7.4-10.4); PLATELET COUNT 344 /CUMM (130-400); RBC DISTRIBUTION WIDTH 15.1 % (11.5-14.5); RED BLOOD CELL CT 3.65 /CUMM (4.20-5.40); WHITE BLOOD CELL COUNT 7.4 /CUMM (4.8-10.8)
[2017-05-24 09:28] LABS: HEMATOCRIT 31.4 % (37-47)
[2017-05-24 14:53] VITALS: BP 120/76
[2017-05-24 19:27] VITALS: BP 120/68
[2017-05-24 21:43] VITALS: BP 130/80
[2017-05-25 07:09] VITALS: BP 130/77
--- NOTE | 2017-05-25 07:36 | PN- Housestaff ---
See Addendum Subjective Follow-up For: Left hydronephrosis due to ureteric stone s/p stone removal and stent placement Subjective: seen and examined She feels much better. In good spirits to go home. Requested pain medications for going home. Review of Systems Constitutional: Reports: see HPI. Objective Last 24 Hrs of Vital Signs/I&O Vital Signs Date Time Temp Pulse Resp B/P B/P Pulse O2 O2 Flow FiO2 Mean Ox Delivery Rate 05/25 0709 98.4 67 20 130/77 99 05/24 2143 98.1 74 18 130/80 98 05/24 1927 97.5 83 18 120/68 87 Room Air 05/24 1453 98.0 69 20 120/76 99 Room Air Intake & Output 05/25 0800 05/25 0000 05/24 1600 Intake Total 460 236 Output Total 0 300 Balance 460 -64 Intake, IV 160 236 Intake, Oral 300 0 Number 0 0 Bowel Movements Output, Urine 0 300 Physical Exam General Appearance: Alert, Oriented X3, Cooperative, No Acute Distress Skin: No Rashes, No Breakdown HEENT: Atraumatic, PERRLA, EOMI Neck: Supple Cardiovascular: Normal S1, Normal S2 Lungs: Clear to Auscultation, Normal Air Movement Abdomen: Normal Bowel Sounds, Soft, mild tenderness in the center of abdomen Neurological: Normal Gait, Normal Speech, Strength at 5/5 X4 Ext, Normal Tone, Sensation Intact Extremities: No Clubbing, No Cyanosis, No Edema Current Medications: Current Medications Sig/Rebecca Start time Last Medication Dose Route Stop Time Status Admin Acetaminophen 650 MG Q6P PRN 05/23 2199 AC PO Acetaminophen 1,000 MG Q8 PRN 05/23 2200 AC 05/24 IV 0628 Alprazolam 0.25 MG DAILY NEEDED 05/23 2230 AC PO 05/30 2229 Atorvastatin Calcium 40 MG 1700 05/24 1700 AC 05/24 PO 2041 Ceftriaxone Sodium 1,000 MG DAILY 05/24 1000 AC 05/24 IV 1006 Fentanyl Citrate 100 MCG .STK-MED ONE 05/24 1633 DC IM 05/24 1634 Ferrous Sulfate 325 MG DAILY 05/24 1000 AC 05/24 PO 2041 Heparin Sodium 5,000 UNIT Q8 05/230 AC 05/25 (Porcine) SC 0611 Ketorolac 30 MG TID PRN 05/24 0715 AC 05/24 Tromethamine IV 2357 Lamotrigine 200 MG DAILY 05/24 1000 AC 05/24 PO 2042 Losartan Potassium 50 MG DAILY 05/25 1000 AC PO Midazolam HCl 2 MG .STK-MED ONE 05/24 1634 DC IM 05/24 1635 Morphine Sulfate 2 MG Q6P PRN 05/24 1330 AC IV Morphine Sulfate 2 MG Q4P PRN 05/23 2200 DC 05/24 IV 1005 Omeprazole 40 MG DAILY AC 05/24 0707 AC 05/25 PO 0611 Ondansetron HCl 4 MG TID PRN 05/23 2200 AC PO Sodium Chloride 1,000 ML Q13H 05/23 2200 DC 05/24 IV 1118 Last 24 Hrs of Lab/Toni Results Last 24 Hrs of Labs/Mics: Laboratory Tests 05/25/17 0717: Anion Gap 10, Estimated GFR 59 L, BUN/Creatinine Ratio 14.0, CBC w Diff NO MAN DIFF REQ, RBC 3.58 L, MCV 87.0, MCH 29.6, MCHC 34.0, RDW 14.9 H, MPV 6.8 L, Gran % 67.6, Lymphocytes % 23.4, Monocytes % 6.4, Eosinophils % 2.1, Basophils % 0.5, Absolute Granulocytes 3.5, Absolute Lymphocytes 1.2, Absolute Monocytes 0.3 , Absolute Eosinophils 0.1, Absolute Basophils 0 Assessment/Plan Assessment: Patient is a 47 YO F with PMH of HLD, HTN, IBS, gastric bypass, obesity, bipolar disorder, headache, nephrolithiasis (age 19ys), hernia repair, ovarian cyst removal presented in ER for typical symptoms of left-sided flank pain radiating to the abdomen and the suprapubic area started on the day of admission. 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 Urinary frequency and urgency continue and flank pain developed on day of admission which was progressively worsening. Patient denies any fever or chills dizziness, palpitation chest pain mild nausea but no vomiting. Vitals are stable without any significant fever, examination unremarkable except mild left CVA tenderness. Labs did show leukocytosis, neutrophils 77% but there is mild increase in creatinine to 1.3 as compared to 0.7 in March 2017. Urine is positive for small leukocyte esterase, more than 75 RBC, large hemoglobin. Imagning with CT abdomen demonstrated left hydronephrosis with a 6 mm left UPJ stone and suspicion of pyelonephritis. Admitted to general medicine floor Problem list 1. Left hydronephrosis with possible pyelonephritis with obstructive UPJ stone 2. Constipation 3. HTN 4. IBS 5. Bipolar disorder Left hydronephrosis with possible pyelonephritis with obstructive UPJ stone Urology consulted as she had a 6mm stone on left side, 8mm stone on the right side. Received 3L of fluidss. A dose of ciprofloxacin was given, started on ceftriaxone IV which is converted to keflex 500mg Q12 for a total of 7 days. She underwent stone removal with stent placement on 2nd day of hospitalization. Discharged with Phenazopyridine for dysuria, percocet for pain along with antibiotics. OTIS Cr of 1.3 at admission. Didnt improve after hydration but came down to 1.0 after removal of the stone and stenting indicating postobstructive. Constipation Possibly related to IBS-C MiraLAX and senna for constipation. HTN She was on Irbesartan 150mg daily at home. It is transitioned to Losartan 50mg daily. Discharged on her home medications. Bipolar disorder cotinued Lamotrigine 200mg daily. Headache Cotinued Topiramate 25mg - 2 tabs tonight. DVT prophylaxis SC heparin Code status Full code Problem List: 1. Hydronephrosis 2. OTIS (acute kidney injury) Pain Ratin Pain Location: abdominal pain Pain Goal: Pain 4 or less Pain Plan: Tylenol and percocet Tomorrow's Labs & Rationales: none
--- NOTE | 2017-05-25 08:13 | RADIOLOGY REPORT ---
EXAMINATION: INTRAOPERATIVE FLUOROSCOPY DURING LEFT CYSTOURETEROSCOPY WITH STENT PLACEMENT CLINICAL INDICATION: Left ureteral stone. COMPARISON: None. TECHNIQUE: The procedure was performed by Dr. Scanlon in the operating room. FLUOROSCOPY TIME: 26 seconds. Number of images: 1 FINDINGS: Fluoroscopic imaging demonstrates partially imaged left ureteral stent with proximal pigtail in the renal collecting system. IMPRESSION: Intraoperative fluoroscopy was utilized by Dr. Scanlon during left cystoureteroscopy with stent placement. Please refer to the operative report for a detailed description of the procedure and the real-time findings made and acted upon by the surgeon.
[2017-05-25 08:26] LABS: ABSOLUTE BASOPHIL COUNT 0 /CUMM (0.0-0.2); ABSOLUTE EOSINOPHIL COUNT 0.1 /CUMM (0.0-0.7); ABSOLUTE GRANULOCYTE CT 3.5 /CUMM (1.4-6.5); ABSOLUTE LYMPH COUNT 1.2 /CUMM (1.2-3.4); ABSOLUTE MONOCYTE COUNT 0.3 /CUMM (0.10-0.60); BASOPHIL % 0.5 % (0.0-2.0); EOSINOPHIL % 2.1 % (0-5); GRANULOCYTE % 67.6 % (42.2-75.2); HEMATOCRIT 31.1 % (37-47); MEAN CORPUSCULAR HGB 29.6 PG (27.0-31.0); MEAN PLATELET VOLUME 6.8 FL (7.4-10.4); PLATELET COUNT 340 /CUMM (130-400); RBC DISTRIBUTION WIDTH 14.9 % (11.5-14.5); RED BLOOD CELL CT 3.58 /CUMM (4.20-5.40); WHITE BLOOD CELL COUNT 5.1 /CUMM (4.8-10.8)
--- NOTE | 2017-05-25 09:31 | Patient Discharge Instructions ---
Discharge Instructions General Discharge Information You were seen/treated for: Left hydronephrosis due to renal stone Special Instructions: Please follow up with your PCP in a week Please follow up with your urologist - in a week Diet Continue normal diet: Yes Activity Full Activity/No Limits: Yes Acute Coronary Syndrome Inclusion Criteria At DC or during hospital stay patient has or had the following: ACS DIAGNOSIS No Discharge Core Measures Meds if any: Prescribed or Continued at Discharge Meds if any: NOT Prescribed or Continued at Discharge Congestive Heart Failure Inclusion Criteria At DC or during hospital stay patient has or had the following: CHF DIAGNOSIS No Discharge Core Measures Meds if any: Prescribed or Continued at Discharge Meds if any: NOT Prescribed or Continued at Discharge Cerebrovascular accident Inclusion Criteria At DC or during hospital stay patient has or had the following: CVA/TIA Diagnosis No Discharge Core Measures Meds if any: Prescribed or Continued at Discharge Meds if any: NOT Prescribed or Continued at Discharge Venous thromboembolism Inclusion Criteria VTE Diagnosis No VTE Type NONE VTE Confirmed by (Test) NONE Discharge Core Measures - Per Current guidelines, there needs to be overlap - treatment for the first 5 days of Warfarin therapy. - If discharged on Warfarin prior to 5 days of - overlap therapy, the patient will need to be - assessed for post discharge needs including - *Post discharge parental anticoagulation - *Warfarin and/or parental anticoagulation education - *Follow up date to check INR post discharge At least 5 days overlap therapy as Inpatient No Meds if any: Prescribed or Continued at Discharge Note: Overlap Therapy is Warfarin and Anticoagulant Meds if any: NOT Prescribed or Continued at Discharge
[2017-05-25] MEDS ORDERED: KEFLEX500 M1 PO ×2 (09:37→10:37)
[2017-05-25] MEDS ORDERED: PYRIDIUM200 M1 PO ×2 (09:47→10:37)
[2017-05-25] MEDS ORDERED: PERCOCET 5-3251 EACH PO ×2 (09:48→10:37)
--- NOTE | 2017-05-25 10:45 | Discharge Summary ---
Visit Information Visit Dates Admission Date: 05/23/17 Discharge Date: 05/25/17 Hospital Course Course Attending Physician: Anusha Chen MD Primary Care Physician: Juan Luis Esposito MD Consulting Request: Consulting Specialty: Urology Consulting Physician: Reason for Consult: hydronephrosis Hospital Course: Patient is a 47 YO F with PMH of HLD, HTN, IBS, gastric bypass, obesity, bipolar disorder, headache, nephrolithiasis (age 19ys), hernia repair, ovarian cyst removal presented in ER for typical symptoms of left-sided flank pain radiating to the abdomen and the suprapubic area started on the day of admission. 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 Urinary frequency and urgency continue and flank pain developed on day of admission which was progressively worsening. Patient denies any fever or chills dizziness, palpitation chest pain mild nausea but no vomiting. Vitals are stable without any significant fever, examination unremarkable except mild left CVA tenderness. Labs did show leukocytosis, neutrophils 77% but there is mild increase in creatinine to 1.3 as compared to 0.7 in March 2017. Urine is positive for small leukocyte esterase, more than 75 RBC, large hemoglobin. Imagning with CT abdomen demonstrated left hydronephrosis with a 6 mm left UPJ stone and suspicion of pyelonephritis. Admitted to general medicine floor Problem list 1. Left hydronephrosis with possible pyelonephritis with obstructive UPJ stone 2. Constipation 3. HTN 4. IBS 5. Bipolar disorder Left hydronephrosis with possible pyelonephritis with obstructive UPJ stone Urology consulted as she had a 6mm stone on left side, 8mm stone on the right side. Received 3L of fluidss. A dose of ciprofloxacin was given, started on ceftriaxone IV which is converted to keflex 500mg Q12 for a total of 7 days. She underwent left cystoureteroscopy with stone removal and stent placement on 2nd day of hospitalization. Discharged with Phenazopyridine for dysuria, percocet for pain along with antibiotics. follow up with in a week. OTIS Cr of 1.3 at admission. Didnt improve after hydration but came down to 1.0 after removal of the stone and stenting indicating postobstructive. Constipation Possibly related to IBS-C MiraLAX and senna for constipation. Had a bowel movement during this hosptalization. HTN She was on Irbesartan 150mg daily at home. It is transitioned to Losartan 50mg daily. Discharged on her home medications. Bipolar disorder cotinued Lamotrigine 200mg daily. Headache Cotinued Topiramate 25mg - 2 tabs tonight. DVT prophylaxis SC heparin Code status Full code Complications: none Allergies: Coded Allergies: amoxicillin (SWELLING 02/02/16) Significant Procedures: CT ABDOMEN AND PELVIS WITH CONTRAST CLINICAL INFORMATION: Constipation. Left-sided flank pain. Urinary symptoms. Evaluate for pyelonephritis or nephrolithiasis. COMPARISON: Previous CT January 2014 TECHNIQUE: Multidetector volumetric imaging was performed of the abdomen and pelvis following IV administration of 90 mL of Optiray 320 intravenous contrast. Sagittal and coronal reformatted images were obtained on the technologist's workstation. DLP: 03/05/2007 mGy-cm FINDINGS: LUNG BASES: The visualized lung bases are unremarkable. LIVER, GALLBLADDER, AND BILIARY TREE: The liver is normal in size, shape, and attenuation. No focal hepatic lesion or biliary ductal dilatation is present. The gallbladder is unremarkable with no evidence of radiopaque gallstones, gallbladder wall thickening, or obvious pericholecystic inflammatory changes. PANCREAS: Unremarkable. SPLEEN: Unremarkable. ADRENAL GLANDS: Unremarkable. KIDNEYS AND URETERS: There is a 6 mm right upper pole renal stone. There is moderate left hydronephrosis from approximately 6 mm left UPJ stone. There is mild stranding of the left perinephric fat or fluid questionable for urine extravasation secondary to obstruction versus infection. BLADDER: Not full and not well evaluated. GASTROINTESTINAL TRACT: There is evidence of mild diverticulosis. Small and large bowel is otherwise normal. The appendix is normal. There are postsurgical changes to the stomach ABDOMINAL WALL: There is evidence of previous upper midline ventral hernia repair with mesh. No recurrent hernia is seen. There is a small umbilical hernia containing fat. There is a knuckle of small bowel that extends toward the neck of the hernia but does not extend into the hernia sac. LYMPH NODES: There are no enlarged lymph nodes. There is no ascites. VASCULAR: Unremarkable. PELVIC VISCERA: The uterus and adnexa are unremarkable. OSSEOUS STRUCTURES: There are degenerative changes of the spine and at the hip joints. IMPRESSION: Moderate left hydronephrosis from a 6 mm left UPJ stone. There is stranding of the perinephric fat and small amount of fluid. Differential would include urine extravasation secondary to obstruction and infection. There is a 6 mm right upper pole renal stone. Mild diverticulosis. No evidence of diverticulitis. abdominal Xray on 05/25/17 IMPRESSION: Intraoperative fluoroscopy was utilized by Dr. Scanlon during left cystoureteroscopy with stent placement. Please refer to the operative report for a detailed description of the procedure and the real-time findings made and acted upon by the surgeon. Pertinent Lab Results: as above Disposition Summary Disposition Principal Diagnosis: Left hydronephrosis due to nephrolithiasis Additional Diagnosis: Bipolar disorder Headache Constipation Discharge Disposition: home or self care Discharge Instructions General Discharge Information Code Status: Full Code Patient's Diet: regular diet Patient's Activity: as tolerated Follow-Up Instructions/Appts: Please follow up with your PCP in a week Please follow up with your urologist - in a week Medications at Discharge Discharge Medications: Continue taking these medications: Lamotrigine (Lamotrigine) 200 MG TABLET 1 Tablet ORAL DAILY Qty = 30 Ferrous Sulfate (High Potency Iron) (Unknown Strength) TABLET Unknown Dose ORAL DAILY Ondansetron (Zofran Odt) 4 MG TAB.RAPDIS 1 Tablet SUBLINGUAL THREE TIMES DAILY as needed for NAUSEA Qty = 10 Irbesartan (Irbesartan) 150 MG TABLET 1 Tablet ORAL DAILY Qty = 30 Rosuvastatin Calcium (Crestor) 10 MG TABLET 1 Tablet ORAL DAILY Qty = 30 Topiramate (Topiramate) 25 MG TABLET 1 Tablet ORAL TWICE DAILY Qty = 120 Alprazolam (Alprazolam) 0.25 MG TABLET Qty = 90 Start taking the following new medications: Phenazopyridine HCl (Pyridium) 200 MG TABLET 1 Tablet ORAL THREE TIMES DAILY as needed for DYSURIA Qty = 9 No Refills Instructions: . Oxycodone HCl/Acetaminophen (Percocet 5-325 MG Tablet) 5 MG-325 MG TABLET 1 Tablet ORAL TWICE DAILY as needed for ABDOMINAL PAIN Qty = 10 No Refills Instructions: . Cephalexin (Keflex) 500 MG CAPSULE 1 Capsule ORAL TWICE DAILY Qty = 10 No Refills Instructions: . Copies To: Trent Scanlon MD, MD,Juan Luis Estevez Attending MD Review Statement Documenting Attending: Anusha Chen MD
== END 2017-05-25 10:59 | DRG 660 ==
LOC: ERH 12:33 → ERHI 19:56 → 2NB 19:56 → ENRESERV 21:01 → ENTRNSPT 21:53 → EDTRNSPTSTS 22:21 → CMPTRNSPT 22:32 → 2NB 22:35 → ENTRNSPT 05-24 18:54 → EDTRNSPT 05-24 19:04 → EDTRNSPTSTS 05-24 19:04 → CMPTRNSPT 05-24 19:32 → ENPENDDIS 05-25 10:07 → 2NB 05-25 10:59
PROVIDERS: Internal Medicine; Physician Assistant Medical
PROC: 0T7 Urinary System, Dilation (ICD-10-PCS; principal; 2017-05-24)
PROC: 0TC78ZZ Extirpation of Matter from Left Ureter, Via Natural or Artificial Opening Endoscopic (ICD-10-PCS; 2017-05-24)
DX: N13.6 Pyonephrosis (principal); Z68.43 Body mass index [BMI] 50.0-59.9, adult; N17.9 Acute kidney failure, unspecified; D47.3 Essential (hemorrhagic) thrombocythemia; E86.0 Dehydration; E66.9 Obesity, unspecified; Z87.891 Personal history of nicotine dependence; K58.9 Irritable bowel syndrome, unspecified; N20.0 Calculus of kidney; F31.9 Bipolar disorder, unspecified; R51 Headache; Z98.84 Bariatric surgery status; Z88.1 Allergy status to other antibiotic agents; D64.9 Anemia, unspecified; F41.9 Anxiety disorder, unspecified; I12.9 Hypertensive chronic kidney disease with stage 1 through stage 4 chronic kidney disease, or unspecified chronic kidney disease; N18.9 Chronic kidney disease, unspecified; K59.00 Constipation, unspecified
CPT/HCPCS: 2NBSP; 36592; 74018; 74177; 81001; 81025; 82436; 87086; 93005; 93010; 96361; 96374; 96375; 96376; C2617; J0131; J0696; J0744; J1644; J1885; J2405; J3101; J7060

== ENCOUNTER → 2017-06-22 | Day surgery (SDC) | payer OTHER ==
[~2017-06-22] VITALS: Ht 157.5 cm; Wt 131.5 kg
[~2017-06-22] MED LIST changes: +ALPRAZOLAM0.25 M1; +CRESTOR10 M1 PO; +IRBESARTAN150 M1 PO; +KEFLEX500 M1 PO; +PERCOCET 5-3251 EACH PO; +PYRIDIUM200 M1 PO; +TOPIRAMATE25 M2 PO
--- NOTE | 2017-06-22 17:43 | Operative Report ---
Operative/Inv Procedure Report Surgery Date: 06/22/17 Name of Procedure: left renal ESWL with fluoroscopy Pre-Operative Diagnosis: 9mm renal stone Post-Operative Diagnosis: same Estimated Blood Loss: none Surgeon/Oral And Maxillofacial Surgery Resident: Lucas Scanlon MD Anesthesia: laryngeal mask airway Specimens: none Complications: none Operative/Procedure Note Note: The patient was taken to the operating room and placed on the ESWL table in supine position. With the patient awake, timeout was performed to confirm correct identity, procedure, laterality, anesthesia, and other pertinent bhavana- operative information. After adequate anesthesia, the patient was positioned so that the patient's left flank was positioned over the table cut-out, overlying the dome of the treatment head. Once the patient was adequately sedated, fluoroscopy, as well as Renal ultrasound was used to locate the LEFT renal stone. Renal US confirmed the presence of the stone which measured it to be approximately 9 mm upper pole stone. The stone was visible with fluoroscopy. Renal US revealed, no hydronephrosis, and no solid tumor, and presence of the stone. The position of the stone was optimized by using fluoroscopy in AP and oblique views;placing the stone within the ESWL c-arm crosshairs. Once the stone's position was optimized , the LEFT renal E.S.W.L. was initiated at low energy level. After noting the patient's tolerance to the shockwaves, the intensitiy was ramped up to maximum level. At the end of the procedure, the left renal stone had dissintegrated. Of note, a total of 2500 shockwaves were delivered to the stone. The patient tolerated the ESWL procedures well, was awakened, then taken to recovery in satisfactory condition via stretcher. The patient was dischared home with pain medications, diet orders, and intructions to catch fragments by straining the urine. The patient to to have follow-up renal ultrasound and KUB in 1 to 2 weeks, prior to follow-up visit in my office. He will then proceed with metabolic stone work-up. Discharge Disposition: PACU CC: Lucas Scanlon MD
== END ==
LOC: STS 03:30
DX: N20.0 Calculus of kidney (principal); I10 Essential (primary) hypertension; G47.33 Obstructive sleep apnea (adult) (pediatric)
CPT/HCPCS: 81025; J2250

== ENCOUNTER → 2017-08-10 | Day surgery (SDC) | payer OTHER ==
[~2017-08-10] VITALS: Ht 157.5 cm; Wt 131.5 kg
--- NOTE | 2017-08-10 14:56 | Operative Report ---
Operative/Inv Procedure Report Surgery Date: 08/10/17 Name of Procedure: right renal ESWL: fluoroscopy Pre-Operative Diagnosis: right renal stone Post-Operative Diagnosis: same Estimated Blood Loss: none Surgeon/Route Sales Representative: Lucas Scanlon MD Anesthesia: moderate sedation Complications: none Operative/Procedure Note Note: The patient was taken to the operating room placed on the OR table in supine position. Timeout was performed, with the patient awake, in order to confirm correct procedure, laterality, anesthesia, and other pertinent perioperative information. After adequate anesthesia and antibiotics, the patient was then positioned over the ESWL table cutout overlying the treatment dome. Fluoroscopy, using AP and oblique views, as well as renal ultrasound, or performed in order to locate the stone. The position of the RIGHT renal stone was optimized, and positioned in the middle of the ESWL crosshairs. The stone was measured to be approximately 8 mm in size. ESWL was initiated at low power, and after 200 shockwaves delivered , noting the patient's tolerance to the shockwaves, the power was increased to maximum. At the end of 2500 shockwaves, fluoroscopy confirms the change in consistency of the stone, indicating shattering of the stone. All sponge needle and instrument count were correct at the end of the case. The patient tolerated the procedures well, and was taken to the recovery room in satisfactory condition. The patient is discharged home with pain medication, and follow-up instructions with in 2-3 weeks' time. Discharge Disposition: Same Day Admissions CC: Lucas Scanlon MD
== END ==
LOC: STS 01:52
DX: N20.0 Calculus of kidney (principal); Z87.442 Personal history of urinary calculi; I10 Essential (primary) hypertension; K58.9 Irritable bowel syndrome, unspecified; Z98.84 Bariatric surgery status
CPT/HCPCS: 81025; J2250

== ENCOUNTER 2017-08-13 17:24 | Inpatient (IN) | payer OTHER ==
[~2017-08-13] VITALS: Ht 157.5 cm; Wt 131.5 kg
[~2017-08-13 17:24] MED LIST changes: -ALPRAZOLAM0.25 M1; +ALPRAZOLAM0.25 M1 PO
--- NOTE | 2017-08-13 19:24 | ED GI/GU/ABDOMINAL COMPLAINT ---
History of Present Illness General Chief Complaint: General Adult Stated Complaint: LOSS OF APPETITE X WEDNESDAY,CONSTIPATION,VOMI Source: patient Exam Limitations: no limitations Vital Signs & Intake/Output Vital Signs & Intake/Output Vital Signs Date Time Temp Pulse Resp B/P B/P Pulse O2 O2 Flow FiO2 Mean Ox Delivery Rate 08/138 97.9 85 20 144/67 100 Room Air 08/13 1739 100.2 88 18 156/78 97 ED Intake and Output 08/14 0000 08/13 1200 Intake Total Output Total 150 Balance -150 Output, Urine 150 Patient 290 lb Weight Weight Reported by Patient Measurement Method Allergies Coded Allergies: amoxicillin (SWELLING 06/21/17) Reconcile Medications Alprazolam 0.25 MG TABLET ANXIETY (Reported) Irbesartan 150 MG TABLET 1 TAB PO DAILY HIGH BLOOD PRESSURE (Reported) Lamotrigine 200 MG TABLET 1 TAB PO DAILY MENTAL HEALTH (Reported) Rosuvastatin Calcium (Crestor) 10 MG TABLET 1 TAB PO DAILY HIGH CHOLESTROL ( Reported) Topiramate 25 MG TABLET 1 TAB PO BID HEADACHE (Reported) Triage Note: PT STATES ON WEDNESDAY SHE HAD A KIDNEY STONE "BLASTED". PT STATES SINCE SHE HAS NOT BEEN URINATING TODAY AND STATES AND STATES SHE HAS BLOOD IN HER URINE. PT REPORTS VOMITING AND DOESN'T FEEL LIKE EATING. PT STATES HER WANTED HER TO HAVE A CT SCAN. Triage Nurses Notes Reviewed? yes ? N Is pt currently ? No Duration: week(s):, waxing and waning Timing: recent history Quality/Severity: cramping Location: left flank HPI: 47-year-old woman presents with left flank pain. She states that she had lithotripsy 3 days ago. Since that time she notes worsening nausea and vomiting and decreased urination. She also notes blood in her urine. She has no fever chills cough phlegm dyspnea. She is otherwise well. Past History Travel History Traveled to [place] past 21 day No Medical History Any Pertinent Medical History? 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 No Review of Systems Review of Systems Constitutional: Reports: no symptoms. EENTM: Reports: no symptoms. Respiratory: Reports: no symptoms. Cardiovascular: Reports: no symptoms. GI: Reports: no symptoms. Genitourinary: Reports: no symptoms. Musculoskeletal: Reports: no symptoms. Skin: Reports: no symptoms. Neurological/Psychological: Reports: no symptoms. Hematologic/Endocrine: Reports: no symptoms. Immunologic/Allergic: Reports: no symptoms. All Other Systems: Reviewed and Negative Physical Exam Physical Exam Gastrointestinal: normal bowel sounds, soft, non-tender Comments: Review of Systems - except as otherwise noted in HPI Review of Systems Constitutional:no symptoms. EENTM:no symptoms. Respiratory:no symptoms. Cardiovascular:no symptoms. GI:no symptoms. Genitourinary:no symptoms. Musculoskeletal:no symptoms. Skin:no symptoms. Neurological/Psychological:no symptoms. Hematologic/Endocrine:no symptoms. Immunologic/Allergic:no symptoms. All Other Systems: Reviewed and Negative Physical Exam Physical Exam General Appearance: well developed/nourished, no apparent distress Head: atraumatic, normal appearance Eyes: Bilateral: normal appearance. Ears, Nose, Throat: normal pharynx, normal ENT inspection Neck: normal inspection, supple, full range of motion Respiratory: normal breath sounds, chest non-tender, no respiratory distress, quiet respiration, lungs clear Cardiovascular: regular rate/rhythm Gastrointestinal: normal bowel sounds, soft, non-tender, no organomegaly Back: normal inspection, normal range of motion Extremities: normal inspection, normal capillary refill, normal range of motion, no edema Neurologic/Psych: no motor/sensory deficits, awake, alert, oriented x 3 Skin: intact, normal color, warm/dry Core Measures ACS in differential dx? No Sepsis Present: No Sepsis Focused Exam Completed? No Progress Differential Diagnosis: PID/cervicitis, peptic ulcer, PUD/GERD, perforated viscous, UTI/pyelo Plan of Care: Orders Procedure Date/time Status Heart Healthy Diet 08/14 B Active CHLAMYDIA-GC DNA PROBE 08/14 599 Active PARTIAL THROMBOPLASTIN TIME 08/14 599 Active PROTHROMBIN TIME 08/14 599 Active HIV (Reflex to HIVCQ) 08/14 599 Active CBC WITHOUT DIFFERENTIAL 08/14 599 Active BASIC ELECTROLYTES PLUS BUN&CR 08/14 06 Active TYPE & SCREEN (NOT X-MATCH) 08/14 06 Active Weight 08/14 0115 Active Vital Signs 08/14 0115 Active Teach/Educate 08/14 011 Active Pain Treatment and Response 08/14 011 Active Nutritional Intake, Monitor 08/14 0115 Active Isolation 08/14 0115 Active Intake & Output 08/14 0115 Active Patient Care Conference 08/14 0115 Active Activity/Ambulation 08/14 0115 Active Pathway - chart 08/14 0018 Active House Staff 08/14 0018 Active Patient Data 08/14 0018 Active Code Status 08/14 0018 Active Lab Add-on Test 08/14 UNK Active VTE Mechanical Prophylaxis 08/14 UNK Active Vital Signs 08/14 UNK Complete Intake & Output 08/14 UNK Complete Shore, Insertion/Removal/Asses 08/14 UNK Complete Activity/Ambulation 08/14 UNK Active FingerStick- Glucose 08/13 2242 Active Patient Data 08/13 2226 Active Saline Lock 08/13 2148 Active Misc Message 08/13 214 Active ED Holding Orders 08/13 214 Active Admit to inpatient 08/13 214 Active Vital Signs 08/13 214 Active Code Status 08/13 214 Complete BLOOD CULTURE 08/13 2024 Active Shore, Insertion/Removal/Asses 08/14 2023 Active CULTURE,URINE 08/14 2023 Active Add-on Test (ER Only) 08/13 2020 Active BLOOD CULTURE 08/13 2020 Active Add-on Test (ER Only) 08/13 195 Active Intake & Output 08/13 194 Active CHLAMYDIA-GC DNA PROBE 08/13 192 Active Add-on Test (ER Only) 08/13 192 Active LIPASE 08/13 192 Complete HUMAN BETA HCG SCREEN 08/13 192 Complete URINALYSIS 08/13 185 Complete COMPREHENSIVE METABOLIC PANEL 08/13 1853 Complete CBC WITHOUT DIFFERENTIAL 08/13 185 Complete Current Medications Sig/Rebecca Start time Last Medication Dose Stop Time Status Admin Heparin Sodium 5,000 UNIT Q8 08/14 0600 AC (Porcine) Oxycodone/ 1 TAB Q6P PRN 08/14 0030 AC Acetaminophen (Percocet) Sodium Chloride 1,000 ML Q8H 08/14 0030 AC 06/16 (Normal Saline 0.9%) 08/15 0029 0036 Acetaminophen 650 MG Q6P PRN 08/14 0015 AC (Tylenol) Morphine Sulfate 2 MG Q4P PRN 08/14 0015 AC (MORPHINE SULFATE) Ondansetron HCl 4 MG Q6P PRN 08/14 0015 AC 08/14 (Zofran) 0109 Metronidazole 500 MG IQ8 08/14 0000 AC 08/13 (Flagyl) 2312 N/A 1 UNIT (No Carrier) Laboratory Tests 08/13/171926: Urine Color YEL, Urine Clarity CLDY H, Urine pH 6.0, Ur Specific Bowie <= 1.005, Urine Protein 30 H, Urine Ketones NEG, Urine Nitrite NEG, Urine Bilirubin NEG, Urine Urobilinogen 0.2, Ur Leukocyte Esterase LARGE H, Ur Microscopic SEDIMENT EXAMINED, Urine RBC 15-25 H, Urine WBC PACKD H, Ur Epithelial Cells MANY H, Urine Bacteria MANY H, Micro UA Comment TRICHOMONAS SEEN H, Urine Hemoglobin LARGE H, Urine Glucose NEG 08/13/171920: Anion Gap 16, Estimated GFR 5 L, BUN/Creatinine Ratio 7.8, Glucose 96, Calcium 9.2, Total Bilirubin 0.8, AST 16, ALT 21, Alkaline Phosphatase 112, Total Protein 7.1, Albumin 3.8, Globulin 3.3, Albumin/Globulin Ratio 1.2, Lipase 124, Total Beta HCG NEGATIVE, CBC w Diff NO MAN DIFF REQ, RBC 2.95 L, MCV 86.5, MCH 29.8, MCHC 34.5, RDW 14.1, MPV 6.5 L, Gran % 83.2 H, Lymphocytes % 10.1 L, Monocytes % 5.8, Eosinophils % 0.7, Basophils % 0.2, Absolute Granulocytes 9.2 H, Absolute Lymphocytes 1.1 L, Absolute Monocytes 0.6, Absolute Eosinophils 0.1 , Absolute Basophils 0 Microbiology 08/13 2024 BLOOD: Blood Culture - COLB 08/13 2020 BLOOD: Blood Culture - COLB 08/13 1926 URINE ROUT: GC DNA Probe - RECD 08/13 1926 URINE ROUT: Chlamydia DNA Probe (JANELL) - RECD 08/13 1926 URINE ROUT: Urine Culture - RECD Diagnostic Imaging: Viewed by Me: CT Scan. Discussed w/RAD: CT Scan. Radiology Impression: PATIENT: ISABELA MEJÍA PRESENT AGE: 47 PATIENT ACCOUNT NO: [id number] : 69 LOCATION: [facility] ORDERING PHYSICIAN: Armando XIONG SERVICE DATE: 08/13/17 EXAM TYPE: CAT - CT ABD & PELVIS W/O IV CONTRAS EXAMINATION: CT ABDOMEN AND PELVIS WITHOUT CONTRAST CLINICAL INFORMATION: Abdominal pain and hematuria. COMPARISON: Renal ultrasound from 07/12/2017. CT images of the abdomen pelvis from 07/23/2017. TECHNIQUE: Multidetector volumetric imaging was performed from the superior aspect of the liver through the pubic symphysis. Sagittal and coronal reformatted images were obtained on the technologist's workstation. DLP: 1401 mGy-cm FINDINGS: LUNG BASES: Mild, subsegmental atelectasis in middle lobe and lower lobes. Trace right pleural effusion. LIVER, GALLBLADDER, AND BILIARY TREE: Mild hepatomegaly. Liver has normal contour and attenuation. No focal hepatic lesion is observed on these noncontrast images. Gallbladder is unremarkable. No intrahepatic or extrahepatic bile duct dilatation. PANCREAS: Unremarkable. SPLEEN: Spleen measures up to 15.5 cm maximum dimension, unchanged compared to 05/23/2017. ADRENAL GLANDS: Unremarkable. RIGHT KIDNEY AND URETER: Hyperdense hemorrhage measuring up to approximately 2.5 cm thick surrounds the right kidney. A calculus measuring up to 0.9 cm was present within the right upper pole and 05/23/2017. Currently, there are two small stone fragments in the upper pole, one measuring approximately 0.3 cm and the other 0.2 cm. Also, small stone fragments are present within the major calyx of the upper pole. There is mild right hydronephrosis. Multiple calculi are now seen within the proximal and mid right ureter, largest measuring up to approximately 0.4 cm. LEFT KIDNEY AND URETER: There is [id number] hydronephrosis of the left kidney. Punctate calculus is present in the interpolar region. Also, 0.4 cm calyceal stone is present in the left lower pole. A calculus measuring up to 0.6 cm present in the distal ureter approximately 4.2 cm above the level of the ureterovesical junction. This could represent distal migration of the previously identified stone near the level of the ureteropelvic junction on 05/23/2017. BLADDER: Unremarkable. GASTROINTESTINAL TRACT: Surgical changes from gastric bypass. Loops of bowel are normal in caliber. Appendix is normal. No evidence of acute inflammation or obstruction along the gastrointestinal tract. No ascites or pneumoperitoneum. ABDOMINAL WALL: Patient has a large body habitus. Small fat- containing umbilical hernia is noted. LYMPH NODES: Normal. VASCULAR: Mild atherosclerosis of the abdominal aorta without aneurysm. PELVIC VISCERA: The uterus and adnexa are unremarkable. OSSEOUS STRUCTURES: There is a hemangioma the T9 vertebral body. At T9-T10, there is vacuum disc phenomenon, endplate sclerosis and osteophytosis. Within the lumbar spine, findings include L4-L5 facet arthropathy and degenerative disc disease. No aggressive osseous lesions. Mild osteoarthritis of the hips. IMPRESSION: 1. There is a right perinephric hematoma which may have occurred after recent lithotripsy. 2. Small stone fragments are present within the upper pole of the right kidney and within the right ureter. Associated mild right hydroureteronephrosis. 3. Gouw-qz-[id number] left hydronephrosis caused by an obstructing calculus measuring up to 0.6 cm in the distal ureter. 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 <Electronically signed in Other Vendor System> SIGNED BY: Jose Torres MD 08/13/172056 Initial ED EKG: none Departure Departure Disposition: STILL A PATIENT Condition: Stable Clinical Impression Primary Impression: Pyelonephritis Secondary Impressions: Kidney stones, Renal failure, Ureteral obstruction Referrals: Juan Luis Esposito MD (PCP/Family) Departure Forms: Customer Survey General Discharge Information Comments 08/13/17, 20:46.... discussed with radiologist... pt with bilateral hydro due to obstructing stones. 08/13/17, 21:39... discussed with dr. ruff who will take pt to OR. Admission Note Spoke With: Ladi Ramos MD Documentation of Exam: Documentation of any treatments & extenuating circumstances including Concerns Regarding Discharge (functional status, medication knowledge or non-compliance, living conditions, etc.) that warrant an admission rather than observation: pt with evidence of bilateral ureteral obstruction and urinary tract infection, merits iv fluids, iv abx, emergent stent placement. Critical Care Note Critical Care Note Critical Care Time: 30-74 min
[2017-08-13 19:37] LABS: ABSOLUTE BASOPHIL COUNT 0 /CUMM (0.0-0.2); ABSOLUTE EOSINOPHIL COUNT 0.1 /CUMM (0.0-0.7); ABSOLUTE GRANULOCYTE CT 9.2 /CUMM (1.4-6.5); ABSOLUTE LYMPH COUNT 1.1 /CUMM (1.2-3.4); ABSOLUTE MONOCYTE COUNT 0.6 /CUMM (0.10-0.60); BASOPHIL % 0.2 % (0.0-2.0); EOSINOPHIL % 0.7 % (0-5); GRANULOCYTE % 83.2 % (42.2-75.2); HEMATOCRIT 25.5 % (37-47); MEAN CORPUSCULAR HGB 29.8 PG (27.0-31.0); MEAN CORPUSCULAR HGB CONC 34.5 G/DL (33.0-37.0); MEAN CORPUSCULAR VOLUME 86.5 FL (81.0-99.0); MEAN PLATELET VOLUME 6.5 FL (7.4-10.4); PLATELET COUNT 382 /CUMM (130-400); RBC DISTRIBUTION WIDTH 14.1 % (11.5-14.5); RED BLOOD CELL CT 2.95 /CUMM (4.20-5.40); WHITE BLOOD CELL COUNT 11.1 /CUMM (4.8-10.8)
--- NOTE | 2017-08-13 20:57 | CT SCAN REPORT ---
EXAMINATION: CT ABDOMEN AND PELVIS WITHOUT CONTRAST CLINICAL INFORMATION: Abdominal pain and hematuria. COMPARISON: Renal ultrasound from 07/12/2017. CT images of the abdomen pelvis from 07/23/2017. TECHNIQUE: Multidetector volumetric imaging was performed from the superior aspect of the liver through the pubic symphysis. Sagittal and coronal reformatted images were obtained on the technologist's workstation. DLP: 1401 mGy-cm FINDINGS: LUNG BASES: Mild, subsegmental atelectasis in middle lobe and lower lobes. Trace right pleural effusion. LIVER, GALLBLADDER, AND BILIARY TREE: Mild hepatomegaly. Liver has normal contour and attenuation. No focal hepatic lesion is observed on these noncontrast images. Gallbladder is unremarkable. No intrahepatic or extrahepatic bile duct dilatation. PANCREAS: Unremarkable. SPLEEN: Spleen measures up to 15.5 cm maximum dimension, unchanged compared to 05/23/2017. ADRENAL GLANDS: Unremarkable. RIGHT KIDNEY AND URETER: Hyperdense hemorrhage measuring up to approximately 2.5 cm thick surrounds the right kidney. A calculus measuring up to 0.9 cm was present within the right upper pole and 05/23/2017. Currently, there are two small stone fragments in the upper pole, one measuring approximately 0.3 cm and the other 0.2 cm. Also, small stone fragments are present within the major calyx of the upper pole. There is mild right hydronephrosis. Multiple calculi are now seen within the proximal and mid right ureter, largest measuring up to approximately 0.4 cm. LEFT KIDNEY AND URETER: There is [id number] hydronephrosis of the left kidney. Punctate calculus is present in the interpolar region. Also, 0.4 cm calyceal stone is present in the left lower pole. A calculus measuring up to 0.6 cm present in the distal ureter approximately 4.2 cm above the level of the ureterovesical junction. This could represent distal migration of the previously identified stone near the level of the ureteropelvic junction on 05/23/2017. BLADDER: Unremarkable. GASTROINTESTINAL TRACT: Surgical changes from gastric bypass. Loops of bowel are normal in caliber. Appendix is normal. No evidence of acute inflammation or obstruction along the gastrointestinal tract. No ascites or pneumoperitoneum. ABDOMINAL WALL: Patient has a large body habitus. Small fat-containing umbilical hernia is noted. LYMPH NODES: Normal. VASCULAR: Mild atherosclerosis of the abdominal aorta without aneurysm. PELVIC VISCERA: The uterus and adnexa are unremarkable. OSSEOUS STRUCTURES: There is a hemangioma the T9 vertebral body. At T9-T10, there is vacuum disc phenomenon, endplate sclerosis and osteophytosis. Within the lumbar spine, findings include L4-L5 facet arthropathy and degenerative disc disease. No aggressive osseous lesions. Mild osteoarthritis of the hips. IMPRESSION: 1. There is a right perinephric hematoma which may have occurred after recent lithotripsy. 2. Small stone fragments are present within the upper pole of the right kidney and within the right ureter. Associated mild right hydroureteronephrosis. 3. Yxnj-io-vldzdozh left hydronephrosis caused by an obstructing calculus measuring up to 0.6 cm in the distal ureter.
--- NOTE | 2017-08-13 22:26 | History & Physical ---
Shlomo Dill 08/13/17 2225: General Information and HPI History of Present Illness: Ms. Mitchell is a 47-year-old at with a PMH of HTN, HLD, IBS, bipolar, RAUSCH, nephrolithiasis s/p stent, lithotripsy (08/10/17) who presents to the ED with right flank pain, decreased urine output and hematuria 3 days. Patient reports her urine output has been progressively worsened since her lithotripsy. She reports right-sided flank pain and abdominal pressure and has been taking her prescribed oxycodone/acetaminophen with minimal relief. She also noted for the past 2 days she has noticed blood in her urine. Her symptoms is accompanied by nausea, vomiting and chills. She has been keeping herself well-hydrated with at least 36 ounces of water daily. She noted she has been having clear vaginal discharge and has not had sexual intercourse for the past 4-5 months. She denies fever, sick contacts, trauma, history of STI or bowel symptoms In the ED she had a fever of 100.2, she received 1.5 NS IVF Allergies/Medications Allergies: Coded Allergies: amoxicillin (SWELLING 06/21/17) Home Med list Alprazolam 0.25 MG TABLET ANXIETY (Reported) Irbesartan 150 MG TABLET 1 TAB PO DAILY HIGH BLOOD PRESSURE (Reported) Lamotrigine 200 MG TABLET 1 TAB PO DAILY MENTAL HEALTH (Reported) Rosuvastatin Calcium (Crestor) 10 MG TABLET 1 TAB PO DAILY HIGH CHOLESTROL ( Reported) Topiramate 25 MG TABLET 1 TAB PO BID HEADACHE (Reported) Past History Travel History Traveled to [place] past 21 day No Medical History Neurological: NONE EENT: NONE Cardiovascular: hypertension Respiratory: NONE Gastrointestinal: irritable bowel syndrome, HERNIA Hepatic: NONE Renal: KIDNEY STONES Musculoskeletal: osteoarthritis Psychiatric: bipolar disease Endocrine: NONE Blood Disorders: anemia Cancer(s): NONE 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 Ambulation: independent IADLs Independent: shopping, housework, finances, food prep, telephone, transportation , medication admin. Review of Systems Review of Systems Constitutional: Reports: see HPI. Exam & Diagnostic Data Last 24 Hrs of Vital Signs/I&O Vital Signs Date Time Temp Pulse Resp B/P B/P Pulse O2 O2 Flow FiO2 Mean Ox Delivery Rate 08/14 0630 97.7 80 18 114/70 99 Room Air 08/13 2238 97.9 85 20 144/67 100 Room Air 08/13 1739 100.2 88 18 156/78 97 Intake & Output 08/14 1600 08/14 0800 08/14 0000 Intake Total Output Total 450 150 Balance -450 -150 Output, Urine 450 150 Patient 290 lb 290 lb Weight Weight Reported by Patient Reported by Patient Measurement Method Physical Exam General Appearance Alert, Oriented X3, Cooperative, No Acute Distress Cardiovascular Regular Rate, Normal S1, Normal S2, No Murmurs Lungs Clear to Auscultation, Normal Air Movement Abdomen R-sided CVA tenderness, R-sided abdominal tenderness Extremities No Edema Last 24 Hrs of Labs/Toni: Laboratory Tests 08/14/17 0732: Sodium Pending, Potassium Pending, Chloride Pending, Carbon Dioxide Pending, Anion Gap Pending, BUN Pending, Creatinine Pending, BUN/Creatinine Ratio Pending , Iron Pending, TIBC Pending, Ferritin Pending, PT 12.6 H, INR 1.15, APTT 32, HIV 1&2 Ab Western Blot Pending 08/14/1717: CBC w Diff Pending, WBC Pending, RBC Pending, Hgb Pending, Hct Pending, MCV Pending, MCH Pending, MCHC Pending, RDW Pending, Plt Count Pending, MPV Pending, Retic Count Pending 08/13/171926: Urine Color YEL, Urine Clarity CLDY H, Urine pH 6.0, Ur Specific [place] <= 1.005, Urine Protein 30 H, Urine Ketones NEG, Urine Nitrite NEG, Urine Bilirubin NEG, Urine Urobilinogen 0.2, Ur Leukocyte Esterase LARGE H, Ur Microscopic SEDIMENT EXAMINED, Urine RBC 15-25 H, Urine WBC PACKD H, Ur Epithelial Cells MANY H, Urine Bacteria MANY H, Micro UA Comment TRICHOMONAS SEEN H, Urine Hemoglobin LARGE H, Urine Glucose NEG 08/13/171920: Anion Gap 16, Estimated GFR 5 L, BUN/Creatinine Ratio 7.8, Glucose 96, Calcium 9.2, Total Bilirubin 0.8, AST 16, ALT 21, Alkaline Phosphatase 112, Total Protein 7.1, Albumin 3.8, Globulin 3.3, Albumin/Globulin Ratio 1.2, Lipase 124, Total Beta HCG NEGATIVE, CBC w Diff NO MAN DIFF REQ, RBC 2.95 L, MCV 86.5, MCH 29.8, MCHC 34.5, RDW 14.1, MPV 6.5 L, Gran % 83.2 H, Lymphocytes % 10.1 L, Monocytes % 5.8, Eosinophils % 0.7, Basophils % 0.2, Absolute Granulocytes 9.2 H, Absolute Lymphocytes 1.1 L, Absolute Monocytes 0.6, Absolute Eosinophils 0.1 , Absolute Basophils 0 Microbiology 08/14 599 URINE ROUT: GC DNA Probe - COLB 08/14 599 URINE ROUT: Chlamydia DNA Probe (TONI) - COLB 08/13 2024 BLOOD: Blood Culture - COLB 08/13 2020 BLOOD: Blood Culture - COLB 08/13 1926 URINE ROUT: GC DNA Probe - RECD 08/13 1926 URINE ROUT: Chlamydia DNA Probe (TONI) - RECD 08/13 1926 URINE ROUT: Urine Culture - RECD Diagnostic Data Other Results XR KIDNEYS, URETER, BLADDER FINDINGS: Single spot views of the right and left abdomen demonstrate partial visualization of stents overlying the right and left kidney regions. CT ABDOMEN AND PELVIS WITHOUT CONTRAST IMPRESSION: 1. There is a right perinephric hematoma which may have occurred after recent lithotripsy. 2. Small stone fragments are present within the upper pole of the right kidney and within the right ureter. Associated mild right hydroureteronephrosis. 3. [id number] left hydronephrosis caused by an obstructing calculus measuring up to 0.6 cm in the distal ureter. IMPRESSION: Intraoperative spot imaging as above Assessment/Plan Assessment: Ms. Mitchell is a 47-year-old at with a PMH of HTN, HLD, IBS, bipolar, HLA, nephrolithiasis s/p stent, lithotripsy (08/10/17) who presents to the ED with right flank pain, decreased urine output and hematuria 3 days. #Right perinephric hematoma -most likely due to recent lithotripsy #Mild right hydroureteronephrosis s/p right renal ESWL #Left hydronephrosis with an obstructing calculus s/p BL stent placement POD 0 #OTIS (baseline 1) #Trichomonas Plan: Admit to general med for further evaluation and management Scheduled for bilateral stents today Type and screen PT/INR, PTT We will hold topiramate due to reported S/E nephrolithiasis IV ceftriaxone 2g metronidazole for Trichomonas NS IVF @ 125cc/hr Pain: Morphine Appreciate urology recommendations Nephro consult We will hold pharmacologic DVT prophylaxis due to reported perinephric hematoma Diet: Heart healthy DVT ppx: ALPS Code: Full As Ranked By This Provider Problem List: 1. Ureteral obstruction Core Measures/Misc (11/15) Acute Coronary Syndrome ACS Diagnosis: No Congestive Heart Failure Congestive Heart Failure Diagnosis No Cerebrovascular Accident CVA/TIA Diagnosis: No VTE (View Protocol) VTE Risk Factors Age>40 No Mechanical VTE Prophylaxis d/t N/A MechProphylax Ordered No VTE Pharm Prophylaxis d/t Bleeding (Active) Comment: renal hematoma Sepsis (View protocol) Sepsis Present: No If YES complete Sepsis Event Note If YES complete Sepsis Event Note Tre RODRIGUEZ,[facility] 08/13/17 2244: Core Measures/Misc (11/15) Sepsis (View protocol) If YES complete Sepsis Event Note If YES complete Sepsis Event Note Resident Review Statement Resident Statement: examined this patient, discussed with software developer intern, agreed with software developer intern Other Findings: This is a 47 YO F with PMH of HLD, HTN, IBS, gastric bypass, obesity, bipolar disorder, headache, nephrolithiasis, hernia repair, migraines, who presented to ER for CC flank pain radiating to the abdomen and decreasing urine output. She was seen by Dr. Scanlon 4 days ago for right-sided ESWL in about 3 weeks ago for left-sided ESWL. Since the most recent procedure she subsequently noted some worsening right-sided pain, hematuria, and some nausea and vomiting on Wednesday. Subsequently the following days the right-sided abdominal pressure got worse and she noted her urine output to be decreasing. She denies any fever, chills, frequency, urgency, headache, change in vision, shortness of breath, or chest pain. She had a very similar presentation for obstructive uropathy about 3 weeks ago. During that admission her creatinine peaked at 1.3. Today she came to ED for evaluation of her symptoms and was found to have left-sided hydro-and obstructive UPJ stone and a creatinine of 8.1. Dr. Scanlon took her to the OR for bilateral stent placement soon after admission. Vitals: 100.2, 88, 18, 126/78, 97. UA: Large leukocyte esterase, 50-25 RBC, packed WBC, many epithelial cell, large hemoglobin. + Trichomonads CBC: White count 11.1, hemoglobin 8.8, hematocrit 25.5. BEP: BUN 63 and creatinine 8.1. Negative beta hCG and negative LFT. Assessment: This is a 39-year-old female past medical history significant for hypertension, hyperlipidemia, IBS, gastric bypass, bipolar, headache on Topamax, nephrolithiasis, who comes in for chief complaint of right-sided flank pain and oliguria. ED workup showed an obstructing UPJ stone on the left side and a hematoma on the right kidney. As such, she is admitted to general medicine floor for further workup of her renal failure. 1. Left hydronephrosis with possible pyelonephritis with obstructive UPJ stone 2. Constipation 3. HTN 4. IBS 5. Bipolar disorder 1. Mild to moderate left-sided hydronephrosis obstructing calculus in distal ureter and mild right hydroureter resulting in acute kidney injury : Appreciate urology consult and intervention. Patient is going for bilateral stent placement now. She got 1 g of ceftriaxone prior to . Her creatinine is 8.1, while her baseline is usually 1.0. * Appreciate urology * We'll place consult for nephrology * Follow-up BEP * IV hydration * Shore placement * Hold Lasix * Stop Topamax. Patient is takingTopiramate for treatment of headache. This is likely exacerbating her nephrolithiasis * I am unsure of what vitamins and supplements she is taking due to her gastric bypass and if they are exacerbating her nephrolithiasis. 2. Anemia: Hemoglobin 8.8 and hematocrit 25.5. She does have perinephric hematoma and hematuria post ESWL. Continue to monitor * Iron studies * Type and cross * PT INR 3. Positive trichomonas on UA: She states that she was last sexually active about 4-5 months ago. She does have some slight vaginal discharge. * We'll start IV Flagyl, she can be converted to by mouth in a.m. * Will obtain HIV and gonococcal and Chlamydia test. 4. Hypertension * Hold irbesartan 5. bipolar disorder: She takes Lamictal for bipolar disorder. * Restart in a.m. Full code ALPS for prophylaxis given her anemia and bleeding Reg diet Ladi Ramos 08/14/17 0617: Core Measures/Misc (11/15) Sepsis (View protocol) If YES complete Sepsis Event Note If YES complete Sepsis Event Note Attending MD Review Statement Attending Statement Attending MD Statement: examined this patient, discuss w/resident/PA/TRAFFIC WORKER, agreed w/resident/PA/TRAFFIC WORKER, reviewed EMR data (avail), reviewed images, amended to note Attending Assessment/Plan: CC: right flank pain PMH: HLD, HTN, IBS, history of gastric bypass, obesity, bipolar disorder, headache, history of nephrolithiasis at the age of 19 years, history of hernia repair, history of ovarian cyst removal Patient underwent lithotripsy on August 10. She was apparently all right for 1 day after the procedure Then gradually noticed to have hematuria and decreased urine output. She had only one cup of urine output in 24 hours so she came to ER. She also has associated right flank pain, nausea, vomited 3 times and chills. She also complains of some vaginal discharge. Vitals: Temperature 100.2, pulse 88, RR 18, blood pressure 156/78, saturating 97 % on room air on exam: A O 3, cooperative, no acute distress, neck supple, JVD normal, no lymphadenopathy, mucosa dry, no focal neurological deficit, no dependent edema, no obvious skin rashes or inflammation CVS: S1-S2, RRR. RS: Clear to auscultate bilaterally. Abdomen: Soft, NT, ND, bowel sounds present, Right CVA tenderness CT abdomen and pelvis without IV contrast: 1. There is a right perinephric hematoma which may have occurred after recent lithotripsy. 2. Small stone fragments are present within the upper pole of the right kidney and within the right ureter. Associated mild right hydroureteronephrosis. 3. [id number]-[id number] left hydronephrosis caused by an obstructing calculus measuring up to 0.6 cm in the distal ureter. Assessment and plan 47-year-old female with extensive past medical history as mentioned above presented in ER for hematuria, decreased urine output, chills, nausea vomiting post of 3 days after shockwave lithotripsy. She appeared dehydrated on examination. Imaging showed right-sided hydronephrosis, mild to moderate left hydronephrosis with obstructing stone. She has mild left shift but her creatinine is increased from 1.0 to 8.1 as compared to April. This could be secondary to obstructive uropathy. Patient underwent bilateral stent insertion. Patient tolerated the procedure well. We'll continue aggressive hydration, IV antibiotics for pyelonephritis. She also found to have perinephric hematoma on the right side which is contradicting to her right flank tenderness. Topiramate should be discontinued. + Obstructive uropathy + Suspected Bilateral ureteric obstruction with bilateral hydronephrosis + Pyelonephritis + Anemia + Acute kidney injury + HLD, HTN, IBS, history of gastric bypass, obesity, bipolar disorder, headache, - Admit to general medicine - Continue aggressive hydration - Transfer to telemetry if significant hyperkalemia - Continue Shore catheter - Continue IV ceftriaxone - Continue by mouth Flagyl for trichomonas - Discontinue topiramate - Urine culture, blood culture - Follow urology recommendation - Type and screen 2 units PRBC - PT/PTT INR if not done already - Patient has significant hematuria: DVT prophylaxis with Alps only
--- NOTE | 2017-08-13 23:42 | Cons- Urology ---
General Information and HPI Consulting Request Date of Consult: 08/13/17 Requested By: Ladi Ramos MD Reason for Consult: acute renal failure: bilateral hydronephrosis: bilateral ureter stones. sepsis. with 3 days of N/V Source of Information: patient, old records Exam Limitations: no limitations History of Present Illness: 47 yr old with HTN, gastric bypass, and other co-morbidities: recently had left ESWL-ureter (3 weeks ago), and subsequent right ESWL 4 days ago: noted slower urine output with vague abd. pain and n/v x 2 days: sent to ER and noted to be in ARF with bilat. obstructed kidneys and sepsis. To go to OR now for bilat. stents then admit for renal function obs/sepsis tx. Allergies/Medications Allergies: Coded Allergies: amoxicillin (SWELLING 06/21/17) Home Med List: Alprazolam 0.25 MG TABLET ANXIETY (Reported) Irbesartan 150 MG TABLET 1 TAB PO DAILY HIGH BLOOD PRESSURE (Reported) Lamotrigine 200 MG TABLET 1 TAB PO DAILY MENTAL HEALTH (Reported) Rosuvastatin Calcium (Crestor) 10 MG TABLET 1 TAB PO DAILY HIGH CHOLESTROL ( Reported) Topiramate 25 MG TABLET 1 TAB PO BID HEADACHE (Reported) Current Medications: Current Medications Sig/Rebecca Start time Last Medication Dose Route Stop Time Status Admin Ceftriaxone Sodium 0 .STK-MED ONE 08/13 2141 DC .ROUTE Ceftriaxone Sodium 1,000 MG ONCE ONE 08/13 2029 DC 08/13 IV 08/13 Ketorolac 0 .STK-MED ONE 08/14 1939 DC Tromethamine .ROUTE Ketorolac 30 MG ONCE ONE 08/13 1899 DC 08/13 Tromethamine IV 08/13 Metronidazole 500 MG IQ8 08/14 0000 AC N/A 1 UNIT IV Ondansetron HCl 4 MG ONCE ONE 08/13 2229 DC 08/13 IV 08/13 2230 222 Ondansetron HCl 0 .STK-MED ONE 08/13 2218 DC .ROUTE Ondansetron HCl 0 .STK-MED ONE 08/14 1939 DC .ROUTE Ondansetron HCl 4 MG ONCE ONE 08/13 190 DC 08/13 IV 08/13 Sodium Chloride 1,000 ML BOLUS ONE 08/13 193 DC 08/13 IV 08/13 Sodium Chloride 500 ML BOLUS ONE 08/13 1900 DC 08/13 IV 08/13 Past History Medical History Neurological: NONE EENT: NONE Cardiovascular: hypertension Respiratory: NONE Gastrointestinal: irritable bowel syndrome, HERNIA Hepatic: NONE Renal: KIDNEY STONES Musculoskeletal: osteoarthritis Psychiatric: bipolar disease Endocrine: NONE Blood Disorders: anemia Cancer(s): NONE 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 Home Who Do You Live With? self Services at Home: None Primary Language: Greenlandic Smoking Status: Never Smoked ETOH Use: denies use Illicit Drug Use: denies illicit drug use Functional Ability ADLs Independent: dressing, eating, toileting, bathing. Ambulation: independent IADLs Independent: shopping, housework, finances, food prep, telephone, transportation , medication admin. Employment History Employment: Employed Retired? no Review of Systems Review of Systems Constitutional: Reports: chills. EENTM: Denies: no symptoms. Cardiovascular: Denies: no symptoms. Respiratory: Denies: no symptoms. GI: Reports: abdominal pain, bloating. Genitourinary: Reports: hematuria. Musculoskeletal: Denies: no symptoms. Skin: Denies: no symptoms. Exam & Diagnostic Data Vital Signs and I&O Vital Signs Date Time Temp Pulse Resp B/P B/P Pulse O2 O2 Flow FiO2 Mean Ox Delivery Rate 08/138 97.9 85 20 144/67 100 Room Air 08/13 1739 100.2 88 18 156/78 97 Physical Exam General Appearance: well developed/nourished, mild distress, obese Head: atraumatic Eyes: Bilateral: normal appearance. Neck: normal inspection, supple, full range of motion Respiratory: normal breath sounds Cardiovascular: regular rate/rhythm Gastrointestinal: normal bowel sounds, soft, non-tender Back: CVA tenderness (R), CVA tenderness (L) Extremities: normal inspection Skin: intact, normal color, warm/dry Reproductive: Normal female genitalia Last 24 Hours of Labs: Laboratory Tests 08/13 1926 Urines Urine Color (YEL,AMB,STR) YEL Urine Clarity (CLEAR) CLDY H Urine pH (5.0 - 8.0) 6.0 Ur Specific [place] (1.001 - 1.035) <= 1.005 Urine Protein (NEG,<30 MG/DL) 30 H Urine Ketones (NEG) NEG Urine Nitrite (NEG) NEG Urine Bilirubin (NEG) NEG Urine Urobilinogen (0.1 - 1.0 EU/dl) 0.2 Ur Leukocyte Esterase (NEG) LARGE H Ur Microscopic SEDIMENT EXAMINED Urine RBC (0 - 5 /HPF) 15-25 H Urine WBC (0 - 2 /HPF) PACKD H Ur Epithelial Cells (NONE,FEW) MANY H Urine Bacteria (NEG/NONE) MANY H Micro UA Comment TRICHOMONAS SEEN H Urine Hemoglobin (NEG) LARGE H Urine Glucose (N MG/DL) NEG 08/13 1920 Chemistry Sodium (137 - 145 mmol/L) 138 Potassium (3.5 - 5.1 mmol/L) 4.6 Chloride (98 - 107 mmol/L) 102 Carbon Dioxide (22 - 30 mmol/L) 19 L Anion Gap (5 - 16) 16 BUN (7 - 17 mg/dL) 63 H Creatinine (0.5 - 1.0 mg/dL) 8.1 *H Estimated GFR (>60 ml/min) 5 L BUN/Creatinine Ratio (7 - 25 %) 7.8 Glucose (65 - 99 mg/dL) 96 Calcium (8.4 - 10.2 mg/dL) 9.2 Total Bilirubin (0.2 - 1.3 mg/dL) 0.8 AST (14 - 36 U/L) 16 ALT (9 - 52 U/L) 21 Alkaline Phosphatase (<127 U/L) 112 Total Protein (6.3 - 8.2 g/dL) 7.1 Albumin (3.5 - 5.0 g/dL) 3.8 Globulin (1.9 - 4.2 gm/dL) 3.3 Albumin/Globulin Ratio (1.1 - 2.2 %) 1.2 Lipase (23 - 300 U/L) 124 Total Beta HCG (NEGATIVE) NEGATIVE Hematology CBC w Diff NO MAN DIFF REQ WBC (4.8 - 10.8 /CUMM) 11.1 H RBC (4.20 - 5.40 /CUMM) 2.95 L Hgb (12.0 - 16.0 G/DL) 8.8 L Hct (37 - 47 %) 25.5 L MCV (81.0 - 99.0 FL) 86.5 MCH (27.0 - 31.0 PG) 29.8 MCHC (33.0 - 37.0 G/DL) 34.5 RDW (11.5 - 14.5 %) 14.1 Plt Count (130 - 400 /CUMM) 382 MPV (7.4 - 10.4 FL) 6.5 L Gran % (42.2 - 75.2 %) 83.2 H Lymphocytes % (20.5 - 51.1 %) 10.1 L Monocytes % (1.7 - 9.3 %) 5.8 Eosinophils % (0 - 5 %) 0.7 Basophils % (0.0 - 2.0 %) 0.2 Absolute Granulocytes (1.4 - 6.5 /CUMM) 9.2 H Absolute Lymphocytes (1.2 - 3.4 /CUMM) 1.1 L Absolute Monocytes (0.10 - 0.60 /CUMM) 0.6 Absolute Eosinophils (0.0 - 0.7 /CUMM) 0.1 Absolute Basophils (0.0 - 0.2 /CUMM) 0 Imaging Results: PATIENT: ISABELA MEJÍA PRESENT AGE: 47 PATIENT ACCOUNT NO: [id number] : 69 LOCATION: [facility] ORDERING PHYSICIAN: Armando XIONG SERVICE DATE: 08/13/17 EXAM TYPE: CAT - CT ABD & PELVIS W/O IV CONTRAS EXAMINATION: CT ABDOMEN AND PELVIS WITHOUT CONTRAST CLINICAL INFORMATION: Abdominal pain and hematuria. COMPARISON: Renal ultrasound from 07/12/2017. CT images of the abdomen pelvis from 07/23/2017. TECHNIQUE: Multidetector volumetric imaging was performed from the superior aspect of the liver through the pubic symphysis. Sagittal and coronal reformatted images were obtained on the technologist's workstation. DLP: 1401 mGy-cm FINDINGS: LUNG BASES: Mild, subsegmental atelectasis in middle lobe and lower lobes. Trace right pleural effusion. LIVER, GALLBLADDER, AND BILIARY TREE: Mild hepatomegaly. Liver has normal contour and attenuation. No focal hepatic lesion is observed on these noncontrast images. Gallbladder is unremarkable. No intrahepatic or extrahepatic bile duct dilatation. PANCREAS: Unremarkable. SPLEEN: Spleen measures up to 15.5 cm maximum dimension, unchanged compared to 05/23/2017. ADRENAL GLANDS: Unremarkable. RIGHT KIDNEY AND URETER: Hyperdense hemorrhage measuring up to approximately 2.5 cm thick surrounds the right kidney. A calculus measuring up to 0.9 cm was present within the right upper pole and 05/23/2017. Currently, there are two small stone fragments in the upper pole, one measuring approximately 0.3 cm and the other 0.2 cm. Also, small stone fragments are present within the major calyx of the upper pole. There is mild right hydronephrosis. Multiple calculi are now seen within the proximal and mid right ureter, largest measuring up to approximately 0.4 cm. LEFT KIDNEY AND URETER: There is kqgw-hv-[id number] hydronephrosis of the left kidney. Punctate calculus is present in the interpolar region. Also, 0.4 cm calyceal stone is present in the left lower pole. A calculus measuring up to 0.6 cm present in the distal ureter approximately 4.2 cm above the level of the ureterovesical junction. This could represent distal migration of the previously identified stone near the level of the ureteropelvic junction on 05/23/2017. BLADDER: Unremarkable. GASTROINTESTINAL TRACT: Surgical changes from gastric bypass. Loops of bowel are normal in caliber. Appendix is normal. No evidence of acute inflammation or obstruction along the gastrointestinal tract. No ascites or pneumoperitoneum. ABDOMINAL WALL: Patient has a large body habitus. Small fat-containing umbilical hernia is noted. LYMPH NODES: Normal. VASCULAR: Mild atherosclerosis of the abdominal aorta without aneurysm. PELVIC VISCERA: The uterus and adnexa are unremarkable. OSSEOUS STRUCTURES: There is a hemangioma the T9 vertebral body. At T9-T10, there is vacuum disc phenomenon, endplate sclerosis and osteophytosis. Within the lumbar spine, findings include L4-L5 facet arthropathy and degenerative disc disease. No aggressive osseous lesions. Mild osteoarthritis of the hips. IMPRESSION: 1. There is a right perinephric hematoma which may have occurred after recent lithotripsy. 2. Small stone fragments are present within the upper pole of the right kidney and within the right ureter. Associated mild right hydroureteronephrosis. 3. Fwbc-ky-sdrivzwx left hydronephrosis caused by an obstructing calculus measuring up to 0.6 cm in the distal ureter. DICTATED BY: Jose Torres MD DATE/TIME DICTATED:08/13/172035 DIRECTOR OF HEMOPHILIA:HUBER DATE/TIME TRANSCRIBED:08/13/172035 Assessment/Plan Assessment/Plan bilat. obstructed kidenys with sepsis/stent bilat. now with iv abx Copies To: Lucas Scanlon MD Consult Acknowledgment - Thank you for your consult request. Attending MD Review Statement Attending Statement Attending MD Statement: examined this patient, discuss w/resident/PA/PRODUCTION QUALITY MANAGER Attending Assessment/Plan: bilat. renal obstruction with sepsis and ARF
--- NOTE | 2017-08-13 23:43 | RADIOLOGY REPORT ---
EXAMINATION: XR KIDNEYS, URETER, BLADDER CLINICAL INDICATION: Bilateral stent placement COMPARISON: CT scan of the abdomen and pelvis performed earlier same day TECHNIQUE: AP view of the abdomen. FINDINGS: Single spot views of the right and left abdomen demonstrate partial visualization of stents overlying the right and left kidney regions. IMPRESSION: Intraoperative spot imaging as above
--- NOTE | 2017-08-13 23:45 | Operative Report ---
Operative/Inv Procedure Report Surgery Date: 08/13/17 Name of Procedure: cystoscopy: bilateral stent insertion: fluoroscopy Pre-Operative Diagnosis: bilat. renal obstruction with ARF, and sepsis Post-Operative Diagnosis: same Estimated Blood Loss: scant Surgeon/Safety And Security Manager: MD Capo, [facility]-urology Anesthesia: moderate sedation Implants: 6 x 22 bard onlay stents (x2) Drains: 18 fr meza Complications: none Condition: improved Operative/Procedure Note Note: The patient was taken to the operating room and placed on the OR table in supine position. Timeout was performed, with the patient awake, in order to confirm correct identity, procedure, antibiotics, anesthesia, and other pertinent information. After adequate anesthesia and antibiotics, the patient was placed in lithotomy stirrups, then draped and prepped in the usual surgical fashion. A 22 Cambodian cystoscope sheath with 30 angle lens was inserted into the urethra without difficulty. Upon entering the bladder, the bladder was noted to be free of tumor, free of stone. No visible efflux from bilateral ureteral orifices was seen. Under direct visualization, the left orifice was intubated with a 5 Cambodian open ended ureteral catheter. Left retrograde pyelogram was performed with fluoroscopy revealing hydronephrotic left kidney, multiple stones in the kidney, and one in the left mid ureter. The open-ended ureteral catheter was removed followed by insertion of a 0.035 Glidewire. The Glidewire was advanced into the left renal pelvis without difficulty. A 6 x 22 Bard onlay double-J stent was railroaded over the wire into the left ureter and kidney. The proximal coil was visualized in the left renal pelvis, on fluoroscopy; and the distal coil was in the bladder cystoscopically. The Glidewire was removed leaving the stent in proper place, with brisk drainage of clear fluid from the left side through the stent. At this point, the right ureteral orifice was then intubated with a 5 Cambodian open ended ureteral catheter. Right retrograde pyelogram was performed, with fluoroscopy, revealing severely hydronephrotic right kidney, multiple stones in the kidney, and in the right mid-ureter. The open-ended ureteral catheter was removed, followed by insertion of a 0.035 Glidewire. The Glidewire was advanced into the right renal pelvis without difficulty. A second 6 x 22 Bard onlay double-J stent was railroaded over the wire into the right ureter and renal pelvis. The proximal coil was visualized in the right renal pelvis on fluoroscopy, and the distal coil was seen in the bladder cystoscopically. The Glidewire was removed, leaving the right stent in proper place, with drainage from the right side. Once both stents were in the proper place and functioning, the bladder was left full, and the cystoscope was removed under direct visualization. An 18 Cambodian Meza catheter was inserted into the bladder without difficulty, draining clear fluid. 10 mL of sterile water was placed into the balloon, and the Meza was attached to a leg bag. All sponge, needle, and instrument count were correct at the end of the case. The patient tolerated procedure well, and was then taken to recovery in satisfactory condition. Discharge Disposition: PACU CC: Lucas Scanlon MD
--- NOTE | 2017-08-14 06:19 | Admission Certification ---
Admission Certification Certification Statement - As attending physician, I certify that at the time of - admission, based on clinical presentation, severity of - symptoms, need for further diagnostic testing and - therapeutic interventions, and risk of adverse outcomes - without in-hospital treatment, in my clinical assessment, - this patient requires an acute hospital stay for a minimum - of two nights or longer. I have also considered psychsocial - factors such as support system, advanced age, financial - issues, cognitive issues, and failed out-patient treatments, - past re-admission history, safety of patient, and lack of - compliance as applicable. Specific rationale supporting this admission is: Obstructive uropathy, acute kidney injury, pyelonephritis, obstructing left ureteric calculus
--- NOTE | 2017-08-14 06:29 | PN- Housestaff ---
See Addendum Subjective Follow-up For: obstructive uropathy otis Subjective: saw pt at bedside this AM. She stated she didn't sleep well bc of the meza. She s till feels fatigued. She now has urine output via meza, but it is dark and tea colored with streaks of blood. Review of Systems Constitutional: Denies: chills, fever. EENTM: Reports: no symptoms. Cardiovascular: Denies: chest pain, palpitations. Respiratory: Reports: no symptoms. Gastrointestinal: Reports: abdominal pain. Genitourinary: Reports: hematuria, pain. Musculoskeletal: Reports: no symptoms. Objective Last 24 Hrs of Vital Signs/I&O Vital Signs Date Time Temp Pulse Resp B/P B/P Pulse O2 O2 Flow FiO2 Mean Ox Delivery Rate 08/13 2238 97.9 85 20 144/67 100 Room Air 08/13 1739 100.2 88 18 156/78 97 Intake & Output 08/14 0800 08/14 0000 08/13 1600 Intake Total Output Total 450 150 Balance -450 -150 Output, Urine 450 150 Patient 131.542 kg 131.542 kg Weight Weight Reported by Patient Reported by Patient Measurement Method Physical Exam General Appearance: Alert, Oriented X3, Cooperative, No Acute Distress HEENT: Atraumatic, PERRLA, EOMI Neck: Supple, No JVD Cardiovascular: Regular Rate, Normal S1, Normal S2, No Murmurs Lungs: Clear to Auscultation, Normal Air Movement Abdomen: Soft, tenderness in dpigastric area Extremities: No Edema Current Medications: Current Medications Sig/Rebecca Start time Last Medication Dose Route Stop Time Status Admin Acetaminophen 650 MG Q6P PRN 08/14 0015 AC PO Ceftriaxone Sodium 1,000 MG DAILY 08/14 899 AC IV Ceftriaxone Sodium 0 .STK-MED ONE 08/13 2141 DC .ROUTE Ceftriaxone Sodium 1,000 MG ONCE ONE 08/13 2029 DC 08/13 IV 08/13 Heparin Sodium 5,000 UNIT Q8 08/14 06 AC 08/14 (Porcine) SC 0540 Ketorolac 0 .STK-MED ONE 08/14 1939 DC Tromethamine .ROUTE Ketorolac 30 MG ONCE ONE 08/130 DC 08/13 Tromethamine IV 08/13 Metronidazole 1,500 MG ONCE ONE 08/14 0630 UNVr PO 08/14 0631 Metronidazole 500 MG IQ8 08/14 0000 DC 08/13 N/A 1 UNIT IV 2312 Morphine Sulfate 2 MG Q4P PRN 08/14 0015 AC IV Ondansetron HCl 4 MG Q6P PRN 08/14 0015 AC 08/14 IV 0109 Ondansetron HCl 4 MG ONCE ONE 08/13 2230 DC 08/13 IV 08/13 Ondansetron HCl 0 .STK-MED ONE 08/13 2218 DC .ROUTE Ondansetron HCl 0 .STK-MED ONE 08/14 1939 DC .ROUTE Ondansetron HCl 4 MG ONCE ONE 08/13 1899 DC 08/13 IV 08/13 Oxycodone/ 1 TAB Q6P PRN 08/14 0030 AC Acetaminophen PO Sodium Chloride 1,000 ML Q8H 08/14 0030 AC 08/14 IV 08/15 0029 0036 Sodium Chloride 1,000 ML BOLUS ONE 08/13 1930 DC 08/13 IV 08/13 Sodium Chloride 500 ML BOLUS ONE 08/13 1899 DC 08/13 IV 08/13 Last 24 Hrs of Lab/Toni Results Last 24 Hrs of Labs/Mics: Laboratory Tests 08/13/171926: Urine Color YEL, Urine Clarity CLDY H, Urine pH 6.0, Ur Specific [place] <= 1.005, Urine Protein 30 H, Urine Ketones NEG, Urine Nitrite NEG, Urine Bilirubin NEG, Urine Urobilinogen 0.2, Ur Leukocyte Esterase LARGE H, Ur Microscopic SEDIMENT EXAMINED, Urine RBC 15-25 H, Urine WBC PACKD H, Ur Epithelial Cells MANY H, Urine Bacteria MANY H, Micro UA Comment TRICHOMONAS SEEN H, Urine Hemoglobin LARGE H, Urine Glucose NEG 08/13/171920: Anion Gap 16, Estimated GFR 5 L, BUN/Creatinine Ratio 7.8, Glucose 96, Calcium 9.2, Total Bilirubin 0.8, AST 16, ALT 21, Alkaline Phosphatase 112, Total Protein 7.1, Albumin 3.8, Globulin 3.3, Albumin/Globulin Ratio 1.2, Lipase 124, Total Beta HCG NEGATIVE, CBC w Diff NO MAN DIFF REQ, RBC 2.95 L, MCV 86.5, MCH 29.8, MCHC 34.5, RDW 14.1, MPV 6.5 L, Gran % 83.2 H, Lymphocytes % 10.1 L, Monocytes % 5.8, Eosinophils % 0.7, Basophils % 0.2, Absolute Granulocytes 9.2 H, Absolute Lymphocytes 1.1 L, Absolute Monocytes 0.6, Absolute Eosinophils 0.1 , Absolute Basophils 0 Microbiology 08/14 599 URINE ROUT: GC DNA Probe - COLB 08/14 599 URINE ROUT: Chlamydia DNA Probe (TONI) - COLB 08/13 2024 BLOOD: Blood Culture - COLB 08/13 2020 BLOOD: Blood Culture - COLB 08/13 1926 URINE ROUT: GC DNA Probe - RECD 08/13 1926 URINE ROUT: Chlamydia DNA Probe (TONI) - RECD 08/13 1926 URINE ROUT: Urine Culture - RECD Assessment/Plan Assessment: This is a 39-year-old female past medical history significant for hypertension, hyperlipidemia, IBS, gastric bypass, bipolar, headache on Topamax, nephrolithiasis, who comes in for chief complaint of right-sided flank pain and oliguria. ED workup showed an obstructing UPJ stone on the left side and a hematoma on the right kidney. As such, she is admitted to general medicine floor for further workup of her renal failure. PLAN: 1. Mild to moderate left-sided hydronephrosis obstructing calculus in distal ureter and mild right hydroureter resulting in acute kidney injury : Appreciate urology consult and intervention. Patient went for bilateral stent placement. She got 1 g of ceftriaxon. Her creatinine is 8.1, while her baseline is usually 1.0. Pending this AM lvl. * Appreciate urology * We'll place consult for nephrology * Follow-up BEP * IV hydration * Meza placement * Hold Lasix * Stop Topamax. Patient is taking Topiramate for treatment of headache. This is likely exacerbating her nephrolithiasis * I am unsure of what vitamins and supplements she is taking due to her gastric bypass and if they are exacerbating her nephrolithiasis. 2. Anemia: Hemoglobin 8.8 and hematocrit 25.5. She does have perinephric hematoma and hematuria post ESWL. Continue to monitor * Iron studies * Type and cross * PT INR 3. Positive trichomonas on UA: She states that she was last sexually active about 4-5 months ago. She does have some slight vaginal discharge. * We'll start IV Flagyl, she can be converted to by mouth in a.m. (Will do 1x 2g dose) * Will obtain HIV and gonococcal and Chlamydia test. 4. Hypertension * Hold irbesartan given renal failure and continue to monitor. Will considre something like amlodipine if she becomes sig hypertensive. 5. bipolar disorder: She takes Lamictal for bipolar disorder. * Have placed psych consult to aid in dosing of her lamictal in context of OTIS. WIll hold off on starting medication this AM. Full code ALPS for prophylaxis given her anemia and bleeding Reg diet Problem List: 1. Renal failure 2. Ureteral obstruction Pain Ratin Pain Location: NONE Pain Goal: Remain pain free Pain Plan: CURRENT REG Tomorrow's Labs & Rationales: CBC BEP
[2017-08-14 06:30] VITALS: BP 114/70
[2017-08-14 08:20] LABS: PT 12.6 SEC (9.4-12.5); PTT 32 SEC (25-37)
[2017-08-14 08:25] LABS: ABSOLUTE BASOPHIL COUNT 0 /CUMM (0.0-0.2); ABSOLUTE EOSINOPHIL COUNT 0.1 /CUMM (0.0-0.7); ABSOLUTE MONOCYTE COUNT 0.5 /CUMM (0.10-0.60); MEAN CORPUSCULAR VOLUME 85.8 FL (81.0-99.0); RED BLOOD CELL CT 2.41 /CUMM (4.20-5.40)
[2017-08-14 08:49] LABS: ABSOLUTE GRANULOCYTE CT 5.7 /CUMM (1.4-6.5); ABSOLUTE LYMPH COUNT 0.8 /CUMM (1.2-3.4); BASOPHIL % 0.3 % (0.0-2.0); EOSINOPHIL % 1.2 % (0-5); GRANULOCYTE % 80.2 % (42.2-75.2); HEMATOCRIT 20.7 % (37-47); MEAN CORPUSCULAR HGB 29.5 PG (27.0-31.0); MEAN CORPUSCULAR HGB CONC 34.4 G/DL (33.0-37.0); MEAN PLATELET VOLUME 6.9 FL (7.4-10.4); PLATELET COUNT 272 /CUMM (130-400); RBC DISTRIBUTION WIDTH 14.2 % (11.5-14.5); WHITE BLOOD CELL COUNT 7.1 /CUMM (4.8-10.8)
[2017-08-14 11:30] VITALS: BP 130/78
--- NOTE | 2017-08-14 13:58 | Cons- Nephrology ---
General Information and HPI Consulting Request Date of Consult: 08/14/17 Requested By: Ladi Ramos MD Reason for Consult: OTIS History of Present Illness: Ms. Mitchell is a 47 yo F with history of kidney stone at the age of 19. About a year ago she was started on Topiramate for headaches with improvement in the same. Earlier this year she developed renal stones and underwent stent placement and lithothripsy earlier this year for left stone and hydronephrosis. She just underwent lithotripsy for a right renal stone on Wednesday but didn't feel well with nausea so came to the ER. CT showed bilateral hydronephrosis with obstructing stones and a creatinine of 8 (was 1). She went to the OR last night and underwent placement of bilateral stents with good U.O. Cr is 7.4 this morning. Allergies/Medications Allergies: Coded Allergies: amoxicillin (SWELLING 06/21/17) Home Med List: Alprazolam 0.25 MG TABLET ANXIETY (Reported) Irbesartan 150 MG TABLET 1 TAB PO DAILY HIGH BLOOD PRESSURE (Reported) Lamotrigine 200 MG TABLET 1 TAB PO DAILY MENTAL HEALTH (Reported) Rosuvastatin Calcium (Crestor) 10 MG TABLET 1 TAB PO DAILY HIGH CHOLESTROL ( Reported) Topiramate 25 MG TABLET 1 TAB PO BID HEADACHE (Reported) Review of Systems Review of Systems: As in HPI Nausea poor appetites this week No SOB,CP No diarrhea Flank pain better now Other systems negative Past History Travel History Traveled to [place] past 21 day No Medical History Neurological: NONE EENT: NONE Cardiovascular: hypertension Respiratory: NONE Gastrointestinal: irritable bowel syndrome, HERNIA Hepatic: NONE Renal: KIDNEY STONES Musculoskeletal: osteoarthritis Psychiatric: bipolar disease Endocrine: NONE Blood Disorders: anemia Cancer(s): NONE 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 Home Who Do You Live With? self Services at Home: None Primary Language: Kiswahili Smoking Status: Former Smoker ETOH Use: denies use Illicit Drug Use: denies illicit drug use Functional Ability ADLs Independent: dressing, eating, toileting, bathing. Ambulation: independent IADLs Independent: shopping, housework, finances, food prep, telephone, transportation , medication admin. Employment History Employment: Employed Exam & Diagnostic Data Vital Signs and I&O Pleasant ObeseF NAD 130/78 73 98.1 Skin neg rash Eyes anicteric ENT moist Lungs clear COr RRR Abd obese soft N/T meza in place Ext chronic edema Results Pertinent Lab Results: 140 / 109 / 53 / 4.4 / 16 / 7.4 (8.0) baseline 1.0 UA 6.0 / 1005 Assessment/Plan Assessment/Recommendations Assessment: OTIS due to bilateral obstruction now s/p bilateral stents. She has a history of stones (30 yrs ago) but has a recurrence of numerous stones this past 6 mths. I coincides with her initiation of topiramate (1 year ago). I agree with the medical team that there could be an association. Topiramate has been associated with nephroithiasis due to metabolic acidosis and blocking carbonic anhydrase and increase urinary calcium excretion. this has been stopped for now. OTIS is due to obstruction which has been relieved. She has good urine output and volume appears okay. If she has excessive urine output (> 3-4L /day) would start IVF to roughly match urine output or a bit less (1-2 L less/day depending on po intake). (1/2 NS). Omero Guerra Recommendations: . Iron (37 - 170 ug/dL) 34 L TIBC (265 - 497 ug/dL) 260 L Ferritin (6.24 - 137 ng/mL) 147.0 H Coagulation PT (9.4 - 12.5 SEC) 12.6 H INR (0.90 - 1.19) 1.15 APTT (25 - 37 SEC) 32 Hematology CBC w Diff NO MAN DIFF REQ WBC (4.8 - 10.8 /CUMM) 7.1 RBC (4.20 - 5.40 /CUMM) 2.41 L Hgb (12.0 - 16.0 G/DL) 7.1 *L Hct (37 - 47 %) 20.7 L MCV (81.0 - 99.0 FL) 85.8 MCH (27.0 - 31.0 PG) 29.5 MCHC (33.0 - 37.0 G/DL) 34.4 RDW (11.5 - 14.5 %) 14.2 Plt Count (130 - 400 /CUMM) 272 MPV (7.4 - 10.4 FL) 6.9 L Gran % (42.2 - 75.2 %) 80.2 H Lymphocytes % (20.5 - 51.1 %) 11.2 L Monocytes % (1.7 - 9.3 %) 7.1 Eosinophils % (0 - 5 %) 1.2 Basophils % (0.0 - 2.0 %) 0.3 Absolute Granulocytes (1.4 - 6.5 /CUMM) 5.7 Absolute Lymphocytes (1.2 - 3.4 /CUMM) 0.8 L Absolute Monocytes (0.10 - 0.60 /CUMM) 0.5 Absolute Eosinophils (0.0 - 0.7 /CUMM) 0.1 Absolute Basophils (0.0 - 0.2 /CUMM) 0 Retic Count (0.5 - 2.0 %) 3.14 H Serology HIV 1&2 Ab Western Blot (NONREACTIVE) NONREACTIVE 08/13 1926 Urines Urine Color (YEL,AMB,STR) YEL Urine Clarity (CLEAR) CLDY H Urine pH (5.0 - 8.0) 6.0 Ur Specific [place] (1.001 - 1.035) <= 1.005 Urine Protein (NEG,<30 MG/DL) 30 H Urine Ketones (NEG) NEG Urine Nitrite (NEG) NEG Urine Bilirubin (NEG) NEG Urine Urobilinogen (0.1 - 1.0 EU/dl) 0.2 Ur Leukocyte Esterase (NEG) LARGE H Ur Microscopic SEDIMENT EXAMINED Urine RBC (0 - 5 /HPF) 15-25 H Urine WBC (0 - 2 /HPF) PACKD H Ur Epithelial Cells (NONE,FEW) MANY H Urine Bacteria (NEG/NONE) MANY H Micro UA Comment TRICHOMONAS SEEN H Urine Hemoglobin (NEG) LARGE H Urine Glucose (N MG/DL) NEG 08/13 1920 Chemistry Sodium (137 - 145 mmol/L) 138 Potassium (3.5 - 5.1 mmol/L) 4.6 Chloride (98 - 107 mmol/L) 102 Carbon Dioxide (22 - 30 mmol/L) 19 L Anion Gap (5 - 16) 16 BUN (7 - 17 mg/dL) 63 H Creatinine (0.5 - 1.0 mg/dL) 8.1 *H Estimated GFR (>60 ml/min) 5 L BUN/Creatinine Ratio (7 - 25 %) 7.8 Glucose (65 - 99 mg/dL) 96 Calcium (8.4 - 10.2 mg/dL) 9.2 Total Bilirubin (0.2 - 1.3 mg/dL) 0.8 AST (14 - 36 U/L) 16 ALT (9 - 52 U/L) 21 Alkaline Phosphatase (<127 U/L) 112 Total Protein (6.3 - 8.2 g/dL) 7.1 Albumin (3.5 - 5.0 g/dL) 3.8 Globulin (1.9 - 4.2 gm/dL) 3.3 Albumin/Globulin Ratio (1.1 - 2.2 %) 1.2 Lipase (23 - 300 U/L) 124 Total Beta HCG (NEGATIVE) NEGATIVE Hematology CBC w Diff NO MAN DIFF REQ WBC (4.8 - 10.8 /CUMM) 11.1 H RBC (4.20 - 5.40 /CUMM) 2.95 L Hgb (12.0 - 16.0 G/DL) 8.8 L Hct (37 - 47 %) 25.5 L MCV (81.0 - 99.0 FL) 86.5 MCH (27.0 - 31.0 PG) 29.8 MCHC (33.0 - 37.0 G/DL) 34.5 RDW (11.5 - 14.5 %) 14.1 Plt Count (130 - 400 /CUMM) 382 MPV (7.4 - 10.4 FL) 6.5 L Gran % (42.2 - 75.2 %) 83.2 H Lymphocytes % (20.5 - 51.1 %) 10.1 L Monocytes % (1.7 - 9.3 %) 5.8 Eosinophils % (0 - 5 %) 0.7 Basophils % (0.0 - 2.0 %) 0.2 Absolute Granulocytes (1.4 - 6.5 /CUMM) 9.2 H Absolute Lymphocytes (1.2 - 3.4 /CUMM) 1.1 L Absolute Monocytes (0.10 - 0.60 /CUMM) 0.6 Absolute Eosinophils (0.0 - 0.7 /CUMM) 0.1 Absolute Basophils (0.0 - 0.2 /CUMM) 0
--- NOTE | 2017-08-14 14:05 | Event Note ---
Event Note Event Note: Psychiatry was formally consulted last night for advice on adjusting lamotrigine in the setting of renal insuffiency. Dr. Orlando Powers stopped by this afternoon ( 08/14/17), and recommended that we could start lamotrigine at 100mg daily dose for now, and resume the regular dose once the kidney function improves at the time of discharge. Hold topiramate. Also, recommended that we could start xanax prn. Since this was a medication question, he didnt see the patient formally. Consult request was discontinued as per his request.
[2017-08-14 15:00] VITALS: BP 122/70
[2017-08-14 19:38] LABS: ABSOLUTE BASOPHIL COUNT 0 /CUMM (0.0-0.2); ABSOLUTE EOSINOPHIL COUNT 0.1 /CUMM (0.0-0.7); ABSOLUTE GRANULOCYTE CT 5.5 /CUMM (1.4-6.5); ABSOLUTE LYMPH COUNT 0.7 /CUMM (1.2-3.4); ABSOLUTE MONOCYTE COUNT 0.4 /CUMM (0.10-0.60); BASOPHIL % 0.2 % (0.0-2.0); EOSINOPHIL % 1.4 % (0-5); GRANULOCYTE % 82.8 % (42.2-75.2); HEMATOCRIT 24.6 % (37-47); MEAN CORPUSCULAR HGB 29.4 PG (27.0-31.0); MEAN CORPUSCULAR HGB CONC 34.1 G/DL (33.0-37.0); MEAN CORPUSCULAR VOLUME 86.2 FL (81.0-99.0); MEAN PLATELET VOLUME 7.1 FL (7.4-10.4); PLATELET COUNT 304 /CUMM (130-400); RED BLOOD CELL CT 2.85 /CUMM (4.20-5.40); WHITE BLOOD CELL COUNT 6.7 /CUMM (4.8-10.8)
[2017-08-14 20:47] VITALS: BP 124/72
[2017-08-15 06:13] VITALS: BP 144/72
[2017-08-15 08:19] LABS: ABSOLUTE BASOPHIL COUNT 0 /CUMM (0.0-0.2); ABSOLUTE EOSINOPHIL COUNT 0.1 /CUMM (0.0-0.7); ABSOLUTE LYMPH COUNT 0.7 /CUMM (1.2-3.4); ABSOLUTE MONOCYTE COUNT 0.4 /CUMM (0.10-0.60); BASOPHIL % 0.2 % (0.0-2.0); EOSINOPHIL % 2.1 % (0-5); GRANULOCYTE % 76.7 % (42.2-75.2); HEMATOCRIT 22.9 % (37-47); MEAN CORPUSCULAR HGB 29.5 PG (27.0-31.0); MEAN CORPUSCULAR HGB CONC 34.1 G/DL (33.0-37.0); MEAN CORPUSCULAR VOLUME 86.6 FL (81.0-99.0); PLATELET COUNT 298 /CUMM (130-400); RED BLOOD CELL CT 2.64 /CUMM (4.20-5.40); WHITE BLOOD CELL COUNT 5.2 /CUMM (4.8-10.8)
--- NOTE | 2017-08-15 12:19 | PN- Att Addend ---
See Addendum Attending Addendum Attending Brief Note 1. Mild to moderate left-sided hydronephrosis obstructing calculus in distal ureter and mild right hydroureter s/p decompression and bilateral stent placement by urology, Continue iv hydration. 2. Anemia: 7.8 s/p 1 unit of transfusion. Transuse 2 nd unit today. She still c /o flank pain but better than admission. folow up urology for perinephric hematoma. 3. Positive trichomonas on UA: received flagyl 4. Hypertension controlled 5. bipolar disorder: stable. 6. OTIS on admission 2/2 obstructive uropathy and IVVD. Nephrology on board Cr>5 trending down. Continue current care, monitor cbc and creatinine tomorrow. Admission Lab Results I reviewed the following labs: Laboratory Tests 08/15 08/14 0649 1830 Chemistry Sodium (137 - 145 mmol/L) 143 Potassium (3.5 - 5.1 mmol/L) 4.6 Chloride (98 - 107 mmol/L) 114 H Carbon Dioxide (22 - 30 mmol/L) 15 L Anion Gap (5 - 16) 14 BUN (7 - 17 mg/dL) 61 H Creatinine (0.5 - 1.0 mg/dL) 5.4 *H Estimated GFR (>60 ml/min) 8 L BUN/Creatinine Ratio (7 - 25 %) 11.3 Hematology CBC w Diff NO MAN DIFF REQ NO MAN DIFF REQ WBC (4.8 - 10.8 /CUMM) 5.2 6.7 RBC (4.20 - 5.40 /CUMM) 2.64 L 2.85 L Hgb (12.0 - 16.0 G/DL) 7.8 L 8.4 L Hct (37 - 47 %) 22.9 L 24.6 L MCV (81.0 - 99.0 FL) 86.6 86.2 MCH (27.0 - 31.0 PG) 29.5 29.4 MCHC (33.0 - 37.0 G/DL) 34.1 34.1 RDW (11.5 - 14.5 %) 14.0 14.0 Plt Count (130 - 400 /CUMM) 298 304 MPV (7.4 - 10.4 FL) 7.0 L 7.1 L Gran % (42.2 - 75.2 %) 76.7 H 82.8 H Lymphocytes % (20.5 - 51.1 %) 13.1 L 9.9 L Monocytes % (1.7 - 9.3 %) 7.9 5.7 Eosinophils % (0 - 5 %) 2.1 1.4 Basophils % (0.0 - 2.0 %) 0.2 0.2 Absolute Granulocytes (1.4 - 6.5 /CUMM) 4.0 5.5 Absolute Lymphocytes (1.2 - 3.4 /CUMM) 0.7 L 0.7 L Absolute Monocytes (0.10 - 0.60 /CUMM) 0.4 0.4 Absolute Eosinophils (0.0 - 0.7 /CUMM) 0.1 0.1 Absolute Basophils (0.0 - 0.2 /CUMM) 0 0 Admission Meds I reviewed the following Meds: Current Medications Sig/Rebecca Start time Last Medication Dose Stop Time Status Admin Acetaminophen 650 MG Q6P PRN 08/14 0015 AC 08/14 (Tylenol) 1102 Alprazolam 0.25 MG DAILY PRN 08/14 1415 AC (Xanax) 08/21 1414 Ceftriaxone Sodium 1,000 MG DAILY 08/14 0900 08/15 (Rocephin) 0848 Lamotrigine 100 MG DAILY 08/14 1415 08/15 (LaMICtal) 0848 Morphine Sulfate 2 MG Q4P PRN 08/14 0015 (MORPHINE SULFATE) Ondansetron HCl 4 MG Q6P PRN 08/14 0015 AC 08/14 (Zofran) 1843 Oxycodone/ 1 TAB Q6P PRN 08/14 0030 08/14 Acetaminophen 2357 (Percocet)
[2017-08-15 15:13] VITALS: BP 152/82
[2017-08-15 22:18] VITALS: BP 150/80
[2017-08-15 23:55] LABS: ABSOLUTE BASOPHIL COUNT 0 /CUMM (0.0-0.2); ABSOLUTE EOSINOPHIL COUNT 0.2 /CUMM (0.0-0.7); ABSOLUTE GRANULOCYTE CT 4.6 /CUMM (1.4-6.5); ABSOLUTE LYMPH COUNT 1.2 /CUMM (1.2-3.4); ABSOLUTE MONOCYTE COUNT 0.7 /CUMM (0.10-0.60); BASOPHIL % 0.4 % (0.0-2.0); EOSINOPHIL % 2.6 % (0-5); GRANULOCYTE % 69.8 % (42.2-75.2); HEMATOCRIT 25.4 % (37-47); MEAN CORPUSCULAR HGB 29.6 PG (27.0-31.0); MEAN CORPUSCULAR HGB CONC 34.5 G/DL (33.0-37.0); MEAN CORPUSCULAR VOLUME 85.9 FL (81.0-99.0); PLATELET COUNT 358 /CUMM (130-400); RBC DISTRIBUTION WIDTH 14.3 % (11.5-14.5); RED BLOOD CELL CT 2.96 /CUMM (4.20-5.40); WHITE BLOOD CELL COUNT 6.7 /CUMM (4.8-10.8)
[2017-08-16 06:03] VITALS: BP 140/70
--- NOTE | 2017-08-16 07:22 | PN- Housestaff ---
See Addendum Subjective Follow-up For: obstructive uropathy otis trichomonas Subjective: Patient reports persistent R flank pain and abdominal pressure. Denies hematuria Review of Systems Constitutional: Reports: see HPI. Objective Last 24 Hrs of Vital Signs/I&O Vital Signs Date Time Temp Pulse Resp B/P B/P Pulse O2 O2 Flow FiO2 Mean Ox Delivery Rate 08/16 0603 97.9 72 20 140/70 95 08/15 2218 98.3 74 18 150/80 95 Room Air 08/15 1513 98.3 76 18 152/82 Intake & Output 08/16 1600 08/16 0800 08/16 0000 Intake Total 240 1750 Output Total 1200 1150 Balance -960 600 Intake, Blood 350 Product Intake, Oral 240 1400 Output, Urine 1200 1150 Physical Exam General Appearance: Alert, Oriented X3, Cooperative, No Acute Distress Cardiovascular: Regular Rate, Normal S1, Normal S2 Lungs: Clear to Auscultation, Normal Air Movement Abdomen: Normal Bowel Sounds, Soft, +R CVA tenderness Extremities: No Edema Current Medications: Current Medications Sig/Rebecca Start time Last Medication Dose Route Stop Time Status Admin Acetaminophen 650 MG Q6P PRN 08/14 0015 AC 08/14 PO 1102 Alprazolam 0.25 MG DAILY PRN 08/14 1415 AC PO 08/21 1414 Ceftriaxone Sodium 1,000 MG DAILY 08/14 0900 08/16 IV 0823 Lamotrigine 100 MG DAILY 08/14 1415 08/16 PO 0823 Morphine Sulfate 2 MG Q4P PRN 08/14 0015 IV Ondansetron HCl 4 MG Q6P PRN 08/14 0015 08/14 IV 1843 Oxycodone/ 1 TAB Q6P PRN 08/14 0030 08/16 Acetaminophen PO 0418 Last 24 Hrs of Lab/Toni Results Last 24 Hrs of Labs/Mics: Laboratory Tests 08/16/17 0715: Anion Gap 11, Estimated GFR 17 L, BUN/Creatinine Ratio 16.3, CBC w Diff NO MAN DIFF REQ, RBC 2.93 L, MCV 85.6, MCH 29.4, MCHC 34.4, RDW 14.1, MPV 7.0 L, Gran % 72.7, Lymphocytes % 15.7 L, Monocytes % 8.9, Eosinophils % 2.3, Basophils % 0.4, Absolute Granulocytes 4.8, Absolute Lymphocytes 1.0 L, Absolute Monocytes 0.6, Absolute Eosinophils 0.2, Absolute Basophils 0 08/15/17 2303: CBC w Diff NO MAN DIFF REQ, RBC 2.96 L, MCV 85.9, MCH 29.6, MCHC 34.5, RDW 14.3 , MPV 7.0 L, Gran % 69.8, Lymphocytes % 17.3 L, Monocytes % 9.9 H, Eosinophils % 2.6, Basophils % 0.4, Absolute Granulocytes 4.6, Absolute Lymphocytes 1.2, Absolute Monocytes 0.7 H, Absolute Eosinophils 0.2, Absolute Basophils 0 Lines/Diet/Fluids Catheters/Tubes: meza Meza Still Needed? Yes Assessment/Plan Assessment: Ms. Mitchell is a 47-year-old at with a PMH of HTN, HLD, IBS, bipolar, HLA, nephrolithiasis s/p stent, lithotripsy (08/10/17) who presents to the ED with right flank pain, decreased urine output and hematuria 3 days. #Right perinephric hematoma -most likely due to recent lithotripsy #Mild right hydroureteronephrosis s/p right renal ESWL #Left hydronephrosis with an obstructing calculus s/p BL stent placement #OTIS (baseline 1) - improving #Trichomonas Plan: 2g metronidazole for Trichomonas given Continue IV ceftriaxone, day 3 Hold topiramate due to reported S/E nephrolithiasis Hold Irbesartan due to OTIS Appreciate urology recommendations Appreciate Nephro recommendations We will hold pharmacologic DVT prophylaxis due to reported perinephric hematoma Pain: Morphine Diet: Heart healthy DVT ppx: ALPS Code: Full Problem List: 1. Ureteral obstruction Pain Ratin Pain Location: R flank Pain Goal: Pain 7 or less Pain Plan: Morphine Tomorrow's Labs & Rationales: BEP
[2017-08-16 08:34] LABS: ABSOLUTE BASOPHIL COUNT 0 /CUMM (0.0-0.2); ABSOLUTE EOSINOPHIL COUNT 0.2 /CUMM (0.0-0.7); ABSOLUTE GRANULOCYTE CT 4.8 /CUMM (1.4-6.5); ABSOLUTE MONOCYTE COUNT 0.6 /CUMM (0.10-0.60); BASOPHIL % 0.4 % (0.0-2.0); EOSINOPHIL % 2.3 % (0-5); GRANULOCYTE % 72.7 % (42.2-75.2); MEAN CORPUSCULAR HGB 29.4 PG (27.0-31.0); MEAN CORPUSCULAR HGB CONC 34.4 G/DL (33.0-37.0); MEAN CORPUSCULAR VOLUME 85.6 FL (81.0-99.0); PLATELET COUNT 340 /CUMM (130-400); RBC DISTRIBUTION WIDTH 14.1 % (11.5-14.5); RED BLOOD CELL CT 2.93 /CUMM (4.20-5.40); WHITE BLOOD CELL COUNT 6.6 /CUMM (4.8-10.8)
--- NOTE | 2017-08-16 12:54 | PN- Nephrology ---
Assessment/Plan Nephrology Assessment: OTIS - 2/2 urinary obstruction - improving nicely. With a rapidly falling SCr, her current renal function is better than a eGFR of 17. I think she's OK to go home. Metabolic acidosis - non anion gap - 2/2 renal failure although there may also be a contribution from topamax. Nephrolithiasis - ?2/2 topamax (acts as a carbonic anhydrase inhibitor and places patients at higher risk for calcium phosphate stones as it creates an alkaline urine). She was on this for migraines and should be stopped. Suggestion: -OK for discharge from renal standpoint as long as taking in adequate PO to keep up with UOP -Stop topamax -Urology follow-up including for stone composition Pt should f/u with me on 09/06 at 3:45pm in the [place] Office with pre-visit BMP Subjective Subjective: SCr down to 3.0 Still with some back pain 3775cc UOP Objective Vital Signs and I&Os Vital Signs Date Time Temp Pulse Resp B/P B/P Pulse O2 O2 Flow FiO2 Mean Ox Delivery Rate 08/16 0603 97.9 72 20 140/70 95 08/15 2218 98.3 74 18 150/80 95 Room Air 08/15 1513 98.3 76 18 152/82 Intake & Output 08/16 1600 08/16 0400 08/15 1600 08/15 0400 08/14 1600 08/14 0400 Intake Total 240 1750 6203 694 8646 Output Total 1200 1150 2625 1350 1450 150 Balance -960 600 -1025 -975 1000 -150 Intake, Blood 350 350 Product Intake, IV 375 500 Intake, Oral 240 1400 1600 1600 Number 0 Bowel Movements Output, Urine 1200 1150 2625 1350 1450 150 Patient 290 lb Weight Weight Reported by Patient Measurement Method Physical Exam: Gen - NAD HEENT - supple CV - RRR, no m/r/g Chest - clear, no w/r/r Abd - soft, NTND Ext - no significant pitting edema Neuro - AOX3, grossly nonfocal Current Medications: Current Medications Sig/Rebecca Start time Last Medication Dose Route Stop Time Status Admin Acetaminophen 650 MG Q6P PRN 08/14 0015 AC 08/14 PO 1102 Alprazolam 0.25 MG DAILY PRN 08/14 1415 AC PO 08/21 1414 Ceftriaxone Sodium 1,000 MG DAILY 08/14 0900 08/16 IV 0823 Lamotrigine 100 MG DAILY 08/14 1415 AC 08/16 PO 0823 Morphine Sulfate 2 MG Q4P PRN 08/14 0015 AC IV Ondansetron HCl 4 MG Q6P PRN 08/14 0015 AC 08/14 IV 1843 Oxycodone/ 1 TAB Q6P PRN 08/14 0030 AC 08/16 Acetaminophen PO 0418 Polyethylene Glycol 17 GM DAILY NEEDED PRN 08/16 1100 AC PO Senna 187 MG AT BEDTIME NEED.. 08/16 1100 AC PO Results Pertinent Lab Results: Laboratory Tests 08/16 08/15 0715 2303 Chemistry Sodium (137 - 145 mmol/L) 142 Potassium (3.5 - 5.1 mmol/L) 4.8 Chloride (98 - 107 mmol/L) 114 H Carbon Dioxide (22 - 30 mmol/L) 17 L Anion Gap (5 - 16) 11 BUN (7 - 17 mg/dL) 49 H Creatinine (0.5 - 1.0 mg/dL) 3.0 H Estimated GFR (>60 ml/min) 17 L BUN/Creatinine Ratio (7 - 25 %) 16.3 Vitamin B12 (239 - 931 pg/mL) 961 H Hematology CBC w Diff NO MAN DIFF REQ NO MAN DIFF REQ WBC (4.8 - 10.8 /CUMM) 6.6 6.7 RBC (4.20 - 5.40 /CUMM) 2.93 L 2.96 L Hgb (12.0 - 16.0 G/DL) 8.6 L 8.8 L Hct (37 - 47 %) 25.0 L 25.4 L MCV (81.0 - 99.0 FL) 85.6 85.9 MCH (27.0 - 31.0 PG) 29.4 29.6 MCHC (33.0 - 37.0 G/DL) 34.4 34.5 RDW (11.5 - 14.5 %) 14.1 14.3 Plt Count (130 - 400 /CUMM) 340 358 MPV (7.4 - 10.4 FL) 7.0 L 7.0 L Gran % (42.2 - 75.2 %) 72.7 69.8 Lymphocytes % (20.5 - 51.1 %) 15.7 L 17.3 L Monocytes % (1.7 - 9.3 %) 8.9 9.9 H Eosinophils % (0 - 5 %) 2.3 2.6 Basophils % (0.0 - 2.0 %) 0.4 0.4 Absolute Granulocytes (1.4 - 6.5 /CUMM) 4.8 4.6 Absolute Lymphocytes (1.2 - 3.4 /CUMM) 1.0 L 1.2 Absolute Monocytes (0.10 - 0.60 /CUMM) 0.6 0.7 H Absolute Eosinophils (0.0 - 0.7 /CUMM) 0.2 0.2 Absolute Basophils (0.0 - 0.2 /CUMM) 0 0 08/15 08/14 0649 1830 Chemistry Sodium (137 - 145 mmol/L) 143 Potassium (3.5 - 5.1 mmol/L) 4.6 Chloride (98 - 107 mmol/L) 114 H Carbon Dioxide (22 - 30 mmol/L) 15 L Anion Gap (5 - 16) 14 BUN (7 - 17 mg/dL) 61 H Creatinine (0.5 - 1.0 mg/dL) 5.4 *H Estimated GFR (>60 ml/min) 8 L BUN/Creatinine Ratio (7 - 25 %) 11.3 Hematology CBC w Diff NO MAN DIFF REQ NO MAN DIFF REQ WBC (4.8 - 10.8 /CUMM) 5.2 6.7 RBC (4.20 - 5.40 /CUMM) 2.64 L 2.85 L Hgb (12.0 - 16.0 G/DL) 7.8 L 8.4 L Hct (37 - 47 %) 22.9 L 24.6 L MCV (81.0 - 99.0 FL) 86.6 86.2 MCH (27.0 - 31.0 PG) 29.5 29.4 MCHC (33.0 - 37.0 G/DL) 34.1 34.1 RDW (11.5 - 14.5 %) 14.0 14.0 Plt Count (130 - 400 /CUMM) 298 304 MPV (7.4 - 10.4 FL) 7.0 L 7.1 L Gran % (42.2 - 75.2 %) 76.7 H 82.8 H Lymphocytes % (20.5 - 51.1 %) 13.1 L 9.9 L Monocytes % (1.7 - 9.3 %) 7.9 5.7 Eosinophils % (0 - 5 %) 2.1 1.4 Basophils % (0.0 - 2.0 %) 0.2 0.2 Absolute Granulocytes (1.4 - 6.5 /CUMM) 4.0 5.5 Absolute Lymphocytes (1.2 - 3.4 /CUMM) 0.7 L 0.7 L Absolute Monocytes (0.10 - 0.60 /CUMM) 0.4 0.4 Absolute Eosinophils (0.0 - 0.7 /CUMM) 0.1 0.1 Absolute Basophils (0.0 - 0.2 /CUMM) 0 0 08/14 08/14 0732 0617 Chemistry Sodium (137 - 145 mmol/L) 140 Potassium (3.5 - 5.1 mmol/L) 4.4 Chloride (98 - 107 mmol/L) 109 H Carbon Dioxide (22 - 30 mmol/L) 16 L Anion Gap (5 - 16) 15 BUN (7 - 17 mg/dL) 63 H Creatinine (0.5 - 1.0 mg/dL) 7.4 *H Estimated GFR (>60 ml/min) 6 L BUN/Creatinine Ratio (7 - 25 %) 8.5 Iron (37 - 170 ug/dL) 34 L TIBC (265 - 497 ug/dL) 260 L Ferritin (6.24 - 137 ng/mL) 147.0 H Coagulation PT (9.4 - 12.5 SEC) 12.6 H INR (0.90 - 1.19) 1.15 APTT (25 - 37 SEC) 32 Hematology CBC w Diff NO MAN DIFF REQ WBC (4.8 - 10.8 /CUMM) 7.1 RBC (4.20 - 5.40 /CUMM) 2.41 L Hgb (12.0 - 16.0 G/DL) 7.1 *L Hct (37 - 47 %) 20.7 L MCV (81.0 - 99.0 FL) 85.8 MCH (27.0 - 31.0 PG) 29.5 MCHC (33.0 - 37.0 G/DL) 34.4 RDW (11.5 - 14.5 %) 14.2 Plt Count (130 - 400 /CUMM) 272 MPV (7.4 - 10.4 FL) 6.9 L Gran % (42.2 - 75.2 %) 80.2 H Lymphocytes % (20.5 - 51.1 %) 11.2 L Monocytes % (1.7 - 9.3 %) 7.1 Eosinophils % (0 - 5 %) 1.2 Basophils % (0.0 - 2.0 %) 0.3 Absolute Granulocytes (1.4 - 6.5 /CUMM) 5.7 Absolute Lymphocytes (1.2 - 3.4 /CUMM) 0.8 L Absolute Monocytes (0.10 - 0.60 /CUMM) 0.5 Absolute Eosinophils (0.0 - 0.7 /CUMM) 0.1 Absolute Basophils (0.0 - 0.2 /CUMM) 0 Retic Count (0.5 - 2.0 %) 3.14 H Serology HIV 1&2 Ab Western Blot (NONREACTIVE) NONREACTIVE 08/13 1926 Urines Urine Color (YEL,AMB,STR) YEL Urine Clarity (CLEAR) CLDY H Urine pH (5.0 - 8.0) 6.0 Ur Specific [place] (1.001 - 1.035) <= 1.005 Urine Protein (NEG,<30 MG/DL) 30 H Urine Ketones (NEG) NEG Urine Nitrite (NEG) NEG Urine Bilirubin (NEG) NEG Urine Urobilinogen (0.1 - 1.0 EU/dl) 0.2 Ur Leukocyte Esterase (NEG) LARGE H Ur Microscopic SEDIMENT EXAMINED Urine RBC (0 - 5 /HPF) 15-25 H Urine WBC (0 - 2 /HPF) PACKD H Ur Epithelial Cells (NONE,FEW) MANY H Urine Bacteria (NEG/NONE) MANY H Micro UA Comment TRICHOMONAS SEEN H Urine Hemoglobin (NEG) LARGE H Urine Glucose (N MG/DL) NEG 08/13 1920 Chemistry Sodium (137 - 145 mmol/L) 138 Potassium (3.5 - 5.1 mmol/L) 4.6 Chloride (98 - 107 mmol/L) 102 Carbon Dioxide (22 - 30 mmol/L) 19 L Anion Gap (5 - 16) 16 BUN (7 - 17 mg/dL) 63 H Creatinine (0.5 - 1.0 mg/dL) 8.1 *H Estimated GFR (>60 ml/min) 5 L BUN/Creatinine Ratio (7 - 25 %) 7.8 Glucose (65 - 99 mg/dL) 96 Calcium (8.4 - 10.2 mg/dL) 9.2 Total Bilirubin (0.2 - 1.3 mg/dL) 0.8 AST (14 - 36 U/L) 16 ALT (9 - 52 U/L) 21 Alkaline Phosphatase (<127 U/L) 112 Total Protein (6.3 - 8.2 g/dL) 7.1 Albumin (3.5 - 5.0 g/dL) 3.8 Globulin (1.9 - 4.2 gm/dL) 3.3 Albumin/Globulin Ratio (1.1 - 2.2 %) 1.2 Lipase (23 - 300 U/L) 124 Total Beta HCG (NEGATIVE) NEGATIVE Hematology CBC w Diff NO MAN DIFF REQ WBC (4.8 - 10.8 /CUMM) 11.1 H RBC (4.20 - 5.40 /CUMM) 2.95 L Hgb (12.0 - 16.0 G/DL) 8.8 L Hct (37 - 47 %) 25.5 L MCV (81.0 - 99.0 FL) 86.5 MCH (27.0 - 31.0 PG) 29.8 MCHC (33.0 - 37.0 G/DL) 34.5 RDW (11.5 - 14.5 %) 14.1 Plt Count (130 - 400 /CUMM) 382 MPV (7.4 - 10.4 FL) 6.5 L Gran % (42.2 - 75.2 %) 83.2 H Lymphocytes % (20.5 - 51.1 %) 10.1 L Monocytes % (1.7 - 9.3 %) 5.8 Eosinophils % (0 - 5 %) 0.7 Basophils % (0.0 - 2.0 %) 0.2 Absolute Granulocytes (1.4 - 6.5 /CUMM) 9.2 H Absolute Lymphocytes (1.2 - 3.4 /CUMM) 1.1 L Absolute Monocytes (0.10 - 0.60 /CUMM) 0.6 Absolute Eosinophils (0.0 - 0.7 /CUMM) 0.1 Absolute Basophils (0.0 - 0.2 /CUMM) 0 Imaging/Other Studies: EXAM TYPE: CAT - CT ABD & PELVIS W/O IV CONTRAS EXAMINATION: CT ABDOMEN AND PELVIS WITHOUT CONTRAST CLINICAL INFORMATION: Abdominal pain and hematuria. COMPARISON: Renal ultrasound from 07/12/2017. CT images of the abdomen pelvis from 07/23/2017. TECHNIQUE: Multidetector volumetric imaging was performed from the superior aspect of the liver through the pubic symphysis. Sagittal and coronal reformatted images were obtained on the technologist's workstation. DLP: 1401 mGy-cm FINDINGS: LUNG BASES: Mild, subsegmental atelectasis in middle lobe and lower lobes. Trace right pleural effusion. LIVER, GALLBLADDER, AND BILIARY TREE: Mild hepatomegaly. Liver has normal contour and attenuation. No focal hepatic lesion is observed on these noncontrast images. Gallbladder is unremarkable. No intrahepatic or extrahepatic bile duct dilatation. PANCREAS: Unremarkable. SPLEEN: Spleen measures up to 15.5 cm maximum dimension, unchanged compared to 05/23/2017. ADRENAL GLANDS: Unremarkable. RIGHT KIDNEY AND URETER: Hyperdense hemorrhage measuring up to approximately 2.5 cm thick surrounds the right kidney. A calculus measuring up to 0.9 cm was present within the right upper pole and 05/23/2017. Currently, there are two small stone fragments in the upper pole, one measuring approximately 0.3 cm and the other 0.2 cm. Also, small stone fragments are present within the major calyx of the upper pole. There is mild right hydronephrosis. Multiple calculi are now seen within the proximal and mid right ureter, largest measuring up to approximately 0.4 cm. LEFT KIDNEY AND URETER: There is [id number] hydronephrosis of the left kidney. Punctate calculus is present in the interpolar region. Also, 0.4 cm calyceal stone is present in the left lower pole. A calculus measuring up to 0.6 cm present in the distal ureter approximately 4.2 cm above the level of the ureterovesical junction. This could represent distal migration of the previously identified stone near the level of the ureteropelvic junction on 05/23/2017. BLADDER: Unremarkable. GASTROINTESTINAL TRACT: Surgical changes from gastric bypass. Loops of bowel are normal in caliber. Appendix is normal. No evidence of acute inflammation or obstruction along the gastrointestinal tract. No ascites or pneumoperitoneum. ABDOMINAL WALL: Patient has a large body habitus. Small fat-containing umbilical hernia is noted. LYMPH NODES: Normal. VASCULAR: Mild atherosclerosis of the abdominal aorta without aneurysm. PELVIC VISCERA: The uterus and adnexa are unremarkable. OSSEOUS STRUCTURES: There is a hemangioma the T9 vertebral body. At T9-T10, there is vacuum disc phenomenon, endplate sclerosis and osteophytosis. Within the lumbar spine, findings include L4-L5 facet arthropathy and degenerative disc disease. No aggressive osseous lesions. Mild osteoarthritis of the hips. IMPRESSION: 1. There is a right perinephric hematoma which may have occurred after recent lithotripsy. 2. Small stone fragments are present within the upper pole of the right kidney and within the right ureter. Associated mild right hydroureteronephrosis. 3. [id number] left hydronephrosis caused by an obstructing calculus measuring up to 0.6 cm in the distal ureter.
--- NOTE | 2017-08-16 13:53 | Discharge Summary ---
Visit Information Visit Dates Admission Date: 08/13/17 Discharge Date: 08/17/17 Hospital Course Course Attending Physician: Ladi Ramos MD Primary Care Physician: Juan Luis Esposito MD Hospital Course: Ms. Mitchell is a 47-year-old at with a PMH of HTN, HLD, IBS, bipolar, HLA, nephrolithiasis s/p stent, lithotripsy (08/10/17) who presents to the ED with right flank pain, decreased urine output and hematuria 3 days. #Right perinephric hematoma #Mild right hydroureteronephrosis #Left hydronephrosis with an obstructing calculus #OTIS (baseline 1) #Trichomonas Urology and Nephrology was consulted. She was treated with IV ceftriaxone. She was given 2g metronidazole for Trichomonas. Bilateral ureteral stents were placed for her hydronephrosis and renal calculus. Her right perinephric hematoma was suspected to be due to her recent shock wave lithotripsy. We monitored her renal function which eventually trended downwards. We discontinued her topiramate due to reported S/E nephrolithiasis. Her pain was controlled with Morphine. We held her Irbesartan due to OTIS and advised not to resume until she see her graphite pan drier tender or PCP after the repeat blood work in one week. Cr at the time of Discharge is 2. Shore discontinued and patient voided. D/W nephro and it was also Ok from their stand point to discharge the patient. Allergies: Coded Allergies: amoxicillin (SWELLING 06/21/17) Pertinent Lab Results: 08/13/17- EXAM TYPE: RAD - XRY-KIDNEYS, URETERS, BLADDER FINDINGS: Single spot views of the right and left abdomen demonstrate partial visualization of stents overlying the right and left kidney regions. IMPRESSION: Intraoperative spot imaging as above 08/13/17-0046 EXAM TYPE: CAT - CT ABD & PELVIS W/O IV CONTRAS IMPRESSION: 1. There is a right perinephric hematoma which may have occurred after recent lithotripsy. 2. Small stone fragments are present within the upper pole of the right kidney and within the right ureter. Associated mild right hydroureteronephrosis. 3. Dngh-[id number] left hydronephrosis caused by an obstructing calculus measuring up to 0.6 cm in the distal ureter. Disposition Summary Disposition Principal Diagnosis: Obstructive uropathy OTIS Trichomonas Additional Diagnosis: as above Discharge Disposition: home or self care Discharge Instructions General Discharge Information Code Status: Full Code Patient's Diet: Heart healthy Patient's Activity: Full Follow-Up Instructions/Appts: Please follow up with your Urologist within a week after discharge. You have an apt with your Plastic Tool Maker on 09/06/17 at 3:45 pm, please follow up. Pls obtain your kidney labs before seeing your graphite pan drier tender. We stopped your Irbesartan bc it can preciptate worse renal function. Pls address this medication with your graphite pan drier tender and see if you can resume it back at that time. Medications at Discharge Discharge Medications: Stop taking the following medications: Irbesartan (Irbesartan) 150 MG TABLET ORAL DAILY Qty = 30 Topiramate (Topiramate) 25 MG TABLET ORAL TWICE DAILY Qty = 120 Continue taking these medications: Lamotrigine (Lamotrigine) 200 MG TABLET 1 Tablet ORAL DAILY Qty = 30 Comments: Last Taken: 08/17/17 Time: 08:03AM Rosuvastatin Calcium (Crestor) 10 MG TABLET 1 Tablet ORAL DAILY Qty = 30 Comments: NOT GIVEN IN THE HOSPITAL Alprazolam (Alprazolam) 0.25 MG TABLET 1 Tablet ORAL as needed for ANXIETY Qty = 90 Comments: NOT GIVEN IN THE HOSPITAL Copies To: Luis RODRIGUEZ,Da Moore; Lucas Scanlon MD; Vaibhav RODRIGUEZ,Juan Luis Estevez
[2017-08-16 14:01] VITALS: BP 143/87
--- NOTE | 2017-08-16 14:29 | PN- Urology ---
Surgical Brief Attending Note Brief Attending Note: pt afebrile: feeling slightly better: u/o adequate: creatinine better-continue meza for now until creatinine back to baseline then voiding trial.
[2017-08-16 22:32] VITALS: BP 134/73
[2017-08-17 06:13] VITALS: BP 143/74
--- NOTE | 2017-08-17 07:23 | PN- Housestaff ---
Clinton RODRIGUEZ,[facility] 08/17/17 0723: Subjective Follow-up For: Obstructive uropathy OTIS Trichomonas Subjective: Patient says she feels better today. Continues to have abdominal pain but thinks its because she has been constipated while her stay in the hospital. Wants the meza to be taken out and would like to void on her own. Review of Systems Constitutional: Reports: no symptoms. EENTM: Reports: no symptoms. Cardiovascular: Reports: no symptoms. Respiratory: Reports: no symptoms. Gastrointestinal: Reports: abdominal pain. Genitourinary: Reports: no symptoms. Musculoskeletal: Reports: no symptoms. Skin: Reports: no symptoms. Neurological/Psychological: Reports: no symptoms. Hematologic/Endocrine: Reports: no symptoms. Immunologic/Allergic: Reports: no symptoms. Objective Last 24 Hrs of Vital Signs/I&O Vital Signs Date Time Temp Pulse Resp B/P B/P Pulse O2 O2 Flow FiO2 Mean Ox Delivery Rate 08/17 0800 Room Air 08/17 0613 98.4 72 18 143/74 100 Room Air 08/16 2232 98.1 73 20 134/73 99 Room Air 08/16 1401 98.1 95 18 143/87 96 Room Air Intake & Output 08/17 1600 08/17 0800 08/17 0000 Intake Total 610 Output Total 1400 1000 Balance -1400 -390 Intake, IV 10 Intake, Oral 600 Output, Urine 1400 1000 Physical Exam General Appearance: Alert, Oriented X3, Cooperative, No Acute Distress Skin: No Rashes, No Breakdown Cardiovascular: Regular Rate, Normal S1, Normal S2 Lungs: Clear to Auscultation, Normal Air Movement Abdomen: Normal Bowel Sounds, Soft, Left lower quadrant tenderness Extremities: No Clubbing, No Cyanosis, No Edema Current Medications: Current Medications Sig/Rebecca Start time Last Medication Dose Route Stop Time Status Admin Acetaminophen 650 MG Q6P PRN 08/14 0015 AC 08/14 PO 1102 Alprazolam 0.25 MG DAILY PRN 08/14 1415 AC PO 08/21 1414 Ceftriaxone Sodium 1,000 MG DAILY 08/14 0900 DC 08/16 IV 0823 Lamotrigine 100 MG DAILY 08/14 1415 AC 08/17 PO 0803 Morphine Sulfate 2 MG Q4P PRN 08/14 0015 AC IV Ondansetron HCl 4 MG Q6P PRN 08/14 0015 AC 08/14 IV 1843 Oxycodone/ 1 TAB Q6P PRN 08/14 0030 AC 08/16 Acetaminophen PO 2054 Patient Medication 1 ED ONE ONE 08/16 1315 DC Teaching ED 08/16 1316 Polyethylene Glycol 17 GM DAILY NEEDED PRN 08/16 1100 AC PO Senna 187 MG AT BEDTIME NEED.. 08/16 1100 AC 08/16 PO 2134 Last 24 Hrs of Lab/Toni Results Last 24 Hrs of Labs/Mics: Laboratory Tests 08/17/17 0835: Anion Gap 10, Estimated GFR 27 L, BUN/Creatinine Ratio 19.0, CBC w Diff NO MAN DIFF REQ, RBC 3.26 L, MCV 85.8, MCH 29.6, MCHC 34.5, RDW 14.5, MPV 6.5 L, Gran % 74.8, Lymphocytes % 12.8 L, Monocytes % 9.3, Eosinophils % 2.8, Basophils % 0.3, Absolute Granulocytes 6.0, Absolute Lymphocytes 1.0 L, Absolute Monocytes 0.7 H, Absolute Eosinophils 0.2, Absolute Basophils 0 Assessment/Plan Assessment: Ms. Mitchell is a 47-year-old morbidly obese lady with a PMH of HTN, HLD, IBS, bipolar, HLA, nephrolithiasis s/p stent, lithotripsy (08/10/17) who presents to the ED with right flank pain, decreased urine output and hematuria 3 days. #Right perinephric hematoma -most likely due to recent lithotripsy #Mild right hydroureteronephrosis s/p right renal ESWL #Left hydronephrosis with an obstructing calculus s/p BL stent placement #OTIS (baseline 1) - improving #Trichomonas #Morbid Obesity Plan: Treated with Ceftriaxone and Flgyl for Trichomonas infection. Discontinue topiramate due to reported S/E nephrolithiasis. DC meza as Cr improving. Will start voiding trials. Hold Irbesartan due to OTIS, patient advised to stop taking it until she sees her General Manager Road Production. Can resume at that time if Cr stable. Appreciate urology recommendations Appreciate Nephro recommendations We will hold pharmacologic DVT prophylaxis due to reported perinephric hematoma. H&H stable. Pain: Morphine Diet: Heart healthy DVT ppx: ALPS Code: Full Problem List: 1. Ureteral obstruction 2. Renal failure Pain Ratin Pain Location: Abdomen Pain Goal: Remain pain free Pain Plan: Pain Pathway Tomorrow's Labs & Rationales: None Anusha Chen MD 08/17/17 1241: Attending MD Review Statement Attending Statement Attending MD Statement: examined this patient, discuss w/resident/PA/HOGSHEAD PRESS OPERATOR, agreed w/resident/PA/HOGSHEAD PRESS OPERATOR, reviewed EMR data (avail), discussed with nursing, discussed with case mgmt, reviewed images, amended to note Attending Assessment/Plan: Patient seen and examined, overall doing better. Creatinine is down to 2 today. Meza catheter was discontinued and patient was able to void. H&H remained stable. Patient otherwise medically stable. We have stopped her ARB. Patient to follow-up with her primary care doctor in a week and the blood work will be repeated in a week. If creatinine continues to improve and if blood pressure starts to go up than her ARB can be resumed by her primary care doctor. Patient to follow-up with urology in 1-2 weeks for the stent removal
--- NOTE | 2017-08-17 07:40 | PN- Student ---
Subjective Subjective: Overall the patient stated that she was feeling much better. Although still present, her pain was much less than the day prior and she did not feel she needed to take her morning Percocet. She felt fatigued, and was unsure if she slept well as she has sleep apnea. She tried walking last night and said she got tired fairly easily but attributed it to resting too much over the last three days. She did not feel unsteady walking, and did not have any concerns, simply stating that she would keep trying to walk more. She feels constipated, and reports her last bowel movement was in the afternoon of the day prior (08/16). She reports she has a history of irritable bowel, and feels the hospital food may have had an impact on her bowel function. Objective Objective: Physical Exam: General: Patient was found walking in her room. She was alert and oriented and well spoken. Skin: Warm and dry, 0+ edema in lower extremeties. Legs appeared similar in size and temperature to each other. No erythema. Lungs: Lungs clear, even bilateral expansion. Heart: Regular rate and rhythm, no rubs, clicks, murmurs or gallops. Abdomen: Mild tenderness to deep palpation of the upper left quadrant. : Urine in meza was light yellow and clear. No CVA tenderness. Vascular/musculoskeletal: Minor point tenderness elicited with palpation in medial left lower extremity. No other pain in the leg was elicited upon palpation. No pain on dorsiflexion of the foot. Results Results: Laboratory Tests 08/17/17 0835: Anion Gap 10, Estimated GFR 27 L, BUN/Creatinine Ratio 19.0, CBC w Diff NO MAN DIFF REQ, RBC 3.26 L, MCV 85.8, MCH 29.6, MCHC 34.5, RDW 14.5, MPV 6.5 L, Gran % 74.8, Lymphocytes % 12.8 L, Monocytes % 9.3, Eosinophils % 2.8, Basophils % 0.3, Absolute Granulocytes 6.0, Absolute Lymphocytes 1.0 L, Absolute Monocytes 0.7 H, Absolute Eosinophils 0.2, Absolute Basophils 0 08/16/17 0715: Anion Gap 11, Estimated GFR 17 L, BUN/Creatinine Ratio 16.3, Vitamin B12 961 H , CBC w Diff NO MAN DIFF REQ, RBC 2.93 L, MCV 85.6, MCH 29.4, MCHC 34.4, RDW 14.1, MPV 7.0 L, Gran % 72.7, Lymphocytes % 15.7 L, Monocytes % 8.9, Eosinophils % 2.3, Basophils % 0.4, Absolute Granulocytes 4.8, Absolute Lymphocytes 1.0 L, Absolute Monocytes 0.6, Absolute Eosinophils 0.2, Absolute Basophils 0 08/15/17 2303: CBC w Diff NO MAN DIFF REQ, RBC 2.96 L, MCV 85.9, MCH 29.6, MCHC 34.5, RDW 14.3 , MPV 7.0 L, Gran % 69.8, Lymphocytes % 17.3 L, Monocytes % 9.9 H, Eosinophils % 2.6, Basophils % 0.4, Absolute Granulocytes 4.6, Absolute Lymphocytes 1.2, Absolute Monocytes 0.7 H, Absolute Eosinophils 0.2, Absolute Basophils 0 08/15/17 0649: Anion Gap 14, Estimated GFR 8 L, BUN/Creatinine Ratio 11.3, CBC w Diff NO MAN DIFF REQ, RBC 2.64 L, MCV 86.6, MCH 29.5, MCHC 34.1, RDW 14.0, MPV 7.0 L, Gran % 76.7 H, Lymphocytes % 13.1 L, Monocytes % 7.9, Eosinophils % 2.1, Basophils % 0.2, Absolute Granulocytes 4.0, Absolute Lymphocytes 0.7 L, Absolute Monocytes 0.4, Absolute Eosinophils 0.1, Absolute Basophils 0 Assessment/Plan Assessment: Patient is a 47 year old female with a past history of kidney stones, HTN, headaches for the last year, Bipolar, IBS, hernia repair, anemia. Her creatinine levels have returned nearly to baseline. Her urine output has been clearer and improving in color. With regard to the point tenderness in the patient's lower left extremity: Repeat evaluation of the patient's point tenderness was performed 20 minutes after initial evaluation, secondary evaluation showed no pain. Perhaps this was passing tenderness from standing? No signs of DVT were elicited in either exam as dorsiflexion of the foot was painless, palpation of the deep venous sites were painless, and extremities were similar in size to each other with no erythema or excessive warmth noted. Plan: OTIS: As patient's creatinine is improving, remove meza and try bladder trial. Discharge pending results of bladder trial. If discharged: follow up with upholstery handler for monitoring improvement and to discuss renal stent removal. Draw labs prior to visit and discuss results at follow up visit. Irbesartan was discontinued - discuss replacement medication with upholstery handler. Headaches: Discontinue Topiramate use at home. Follow up with neurologist for alternative medication. Constipation: Continue stool softeners as necessary.
--- NOTE | 2017-08-17 07:56 | Patient Discharge Instructions ---
Discharge Instructions General Discharge Information You were seen/treated for: Obstructive uropathy OTIS Trichomonas Special Instructions: Please follow up with your Urologist within a week after discharge. You have an apt with your Full Time Paramedic on 09/06/17 at 3:45 pm, please follow up. Pls obtain your kidney labs before seeing your machine load clerk. We stopped your Irbesartan bc it can preciptate worse renal function. Pls address this medication with your machine load clerk and see if you can resume it back at that time. Diet Continue normal diet: Yes Activity Full Activity/No Limits: Yes Acute Coronary Syndrome Inclusion Criteria At DC or during hospital stay patient has or had the following: ACS DIAGNOSIS No Discharge Core Measures Meds if any: Prescribed or Continued at Discharge Meds if any: NOT Prescribed or Continued at Discharge Congestive Heart Failure Inclusion Criteria At DC or during hospital stay patient has or had the following: CHF DIAGNOSIS No Discharge Core Measures Meds if any: Prescribed or Continued at Discharge Meds if any: NOT Prescribed or Continued at Discharge Cerebrovascular accident Inclusion Criteria At DC or during hospital stay patient has or had the following: CVA/TIA Diagnosis No Discharge Core Measures Meds if any: Prescribed or Continued at Discharge Meds if any: NOT Prescribed or Continued at Discharge Venous thromboembolism Inclusion Criteria VTE Diagnosis No VTE Type NONE VTE Confirmed by (Test) NONE Discharge Core Measures - Per Current guidelines, there needs to be overlap - treatment for the first 5 days of Warfarin therapy. - If discharged on Warfarin prior to 5 days of - overlap therapy, the patient will need to be - assessed for post discharge needs including - *Post discharge parental anticoagulation - *Warfarin and/or parental anticoagulation education - *Follow up date to check INR post discharge At least 5 days overlap therapy as Inpatient No Meds if any: Prescribed or Continued at Discharge Note: Overlap Therapy is Warfarin and Anticoagulant Meds if any: NOT Prescribed or Continued at Discharge
[2017-08-17 09:00] LABS: ABSOLUTE BASOPHIL COUNT 0 /CUMM (0.0-0.2); ABSOLUTE EOSINOPHIL COUNT 0.2 /CUMM (0.0-0.7); ABSOLUTE MONOCYTE COUNT 0.7 /CUMM (0.10-0.60); BASOPHIL % 0.3 % (0.0-2.0); EOSINOPHIL % 2.8 % (0-5); GRANULOCYTE % 74.8 % (42.2-75.2); MEAN CORPUSCULAR HGB 29.6 PG (27.0-31.0); MEAN CORPUSCULAR HGB CONC 34.5 G/DL (33.0-37.0); MEAN CORPUSCULAR VOLUME 85.8 FL (81.0-99.0); MEAN PLATELET VOLUME 6.5 FL (7.4-10.4); PLATELET COUNT 420 /CUMM (130-400); RBC DISTRIBUTION WIDTH 14.5 % (11.5-14.5); RED BLOOD CELL CT 3.26 /CUMM (4.20-5.40); WHITE BLOOD CELL COUNT 8.1 /CUMM (4.8-10.8)
--- NOTE | 2017-08-17 10:58 | PN- Urology ---
Surgical Brief Attending Note Brief Attending Note: OVERALL IMPROVING: CREATININE ALMOST AT BASELINE: OK TO DC HOME WITH SANTIZO AND F/U BMP (BLOODWORK) IN A WEEK PRIOR TO OFFICE VISIT FOR VOIDING TRIAL NEXT WEEK.
== END 2017-08-17 14:50 | DRG 683 ==
LOC: ERH 17:24 → ERHI 21:49 → 2NB 21:49 → EDBEDREQ 22:46 → ENRESERV 22:56 → ERHI 23:28 → 2NB 23:39 → ENPENDDIS 08-17 13:55 → 2NB 08-17 14:50
PROVIDERS: Dermatology; Internal Medicine; Internal Medicine Endocrinology, Diabetes & Metabolism; Physician Assistant; Student in an Organized Health Care Education/Training Program
PROC: 0T788DZ Dilation of Bilateral Ureters with Intraluminal Device, Via Natural or Artificial Opening Endoscopic (ICD-10-PCS; principal; 2017-08-13)
PROC: 30233N1 Transfusion of Nonautologous Red Blood Cells into Peripheral Vein, Percutaneous Approach (ICD-10-PCS; 2017-08-14)
DX: N17.9 Acute kidney failure, unspecified (principal); N99.840 Postprocedural hematoma of a genitourinary system organ or structure following a genitourinary system procedure; D62 Acute posthemorrhagic anemia; E87.2 Acidosis; Z68.43 Body mass index [BMI] 50.0-59.9, adult; N13.2 Hydronephrosis with renal and ureteral calculous obstruction; N12 Tubulo-interstitial nephritis, not specified as acute or chronic; Y83.9 Surgical procedure, unspecified as the cause of abnormal reaction of the patient, or of later complication, without mention of misadventure at the time of the procedure; R31.9 Hematuria, unspecified; Z87.442 Personal history of urinary calculi; A59.03 Trichomonal cystitis and urethritis; T42.6X5A Adverse effect of other antiepileptic and sedative-hypnotic drugs, initial encounter; F31.9 Bipolar disorder, unspecified; E78.5 Hyperlipidemia, unspecified; I10 Essential (primary) hypertension; Z96.0 Presence of urogenital implants; Z88.1 Allergy status to other antibiotic agents; Z98.84 Bariatric surgery status; K59.09 Other constipation; A59.01 Trichomonal vulvovaginitis; E66.01 Morbid (severe) obesity due to excess calories
CPT/HCPCS: 2NBSP; 36415; 36592; 74018; 74176; 81001; 82436; 86920; 87040; 87086; 87389; 87491; 87591; 96361; 96374; 96375; 99291; C2617; J0696; J1170; J1644; J1885; J2405; J7040; P9016